=== PATIENT | male | born 1940 | race Caucasian/White ===

== ENCOUNTER 2018-05-26 12:31 | Inpatient (IN) | payer OTHER ==
--- NOTE | 2018-05-26 12:49 | PDOC ---
History of Present Illness - General Stated Complaint: FEVER Time Seen by Provider: 05/26/18 12:40 - History of Present Illness Initial Comments: 05/26/18 12:44 78 yo M with h/o NIDDM, HTN, HLD, OCD, BPH, BIBA from [facility] ([facility]) confusion and fever. Per EMS patient found to be diaphoretic, with oral temp 101.0. Per group home staff, and EMS patient non-verbal, not following commands, and hypotensive. EMS told by PMD that pt. was in septic shock. EMS reports SBP 120. Mental status not typical of baseline. Patient typically A&O, and non ambulatory at baseline. Currently denies symptoms. Patient denies DAVIS, vision change, palpitations, cough, wheezing, orthopena, PND , leg swelling/pain, N/V, F,C, CP, SOB, urinary complaints, hematuria, BPR, abdominal pain, diarrhea, constipation, lightheadedness, weakness, sensory changes. PMHx: as noted above ROS: as noted Allergies: NKDA PMD: Dr. Hurley [facility] Past History - Past Medical History Allergies/Adverse Reactions: Allergies Allergy/AdvReac Type Severity Reaction Status Date / Time No Known Allergies Allergy Verified 05/26/18 13:03 Home Medications: Ambulatory Orders Acetaminophen [Tylenol] 650 mg PO ONCE 05/26/18 Duloxetine HCl [Cymbalta -] 60 mg PO DAILY 05/26/18 Dutasteride [Avodart] 0.5 mg PO DAILY 05/26/18 Fluvoxamine Maleate [Luvox -] 100 mg PO BID 05/26/18 Furosemide [Lasix -] 40 mg PO DAILY 05/26/18 Glucosamine Sulfate Dipot Chlr [Glucosamine] 500 mg PO BID 05/26/18 Insulin (LOG) Aspart [NovoLOG -] 0 units SQ TID 05/26/18 Insulin (Levemir) [Levemir Vial] 80 unit SQ DAILY 05/26/18 Meloxicam [Mobic] 15 mg PO HS 05/26/18 Metformin HCl [Glucophage] 1,000 mg PO BID 05/26/18 Oxcarbazepine [Trileptal -] 300 mg PO BID 05/26/18 Oxcarbazepine [Trileptal] 150 mg PO HS 05/26/18 Rosuvastatin [Crestor -] 10 mg PO DAILY 05/26/18 Sitagliptin Phosphate [Januvia -] 100 mg PO DAILY@0700 05/26/18 Spironolactone [Aldactone] 25 mg PO BID 05/26/18 Tamsulosin HCl [Flomax] 0.4 mg PO DAILY 05/26/18 Thiamine HCl [Vitamin B1] 100 mg PO DAILY 05/26/18 Review of Systems - Review of Systems Comments:: 05/26/18 12:58 GENERAL/CONSTITUTIONAL: No fever or chills. No weakness. HEAD, EYES, EARS, NOSE AND THROAT: No change in vision. No ear pain or discharge. No sore throat. CARDIOVASCULAR: No chest pain or shortness of breath RESPIRATORY: No cough, wheezing, or hemoptysis. GASTROINTESTINAL: No nausea, vomiting, diarrhea or constipation. GENITOURINARY: No dysuria, frequency, or change in urination. MUSCULOSKELETAL: No joint or muscle swelling or pain. No neck or back pain. SKIN: No rash NEUROLOGIC: No headache, vertigo, loss of consciousness, or change in strength/ sensation. ENDOCRINE: No increased thirst. No abnormal weight change HEMATOLOGIC/LYMPHATIC: No anemia, easy bleeding, or history of blood clots. ALLERGIC/IMMUNOLOGIC: No hives or skin allergy. *Physical Exam - Physical Exam Comments: 05/26/18 12:58 GENERAL: Awake, alert, and oriented to person, date, in no acute distress HEAD: No signs of trauma, normocephalic, atraumatic EYES: PERRLA, EOMI, sclera anicteric, conjunctiva clear ENT: Auricles normal inspection, hearing grossly normal, nares patent, oropharynx clear without exudates. Moist mucosa NECK: Normal ROM, supple, no lymphadenopathy, JVD, or masses LUNGS: No distress, speaks full sentences, clear to auscultation bilaterally HEART: Regular rate and rhythm, normal S1 and S2, no murmurs, rubs or gallops, peripheral pulses normal and equal bilaterally. ABDOMEN: Soft, nontender, normoactive bowel sounds. No guarding, no rebound. No masses EXTREMITIES : Normal inspection, Normal range of motion, no edema. No clubbing or cyanosis. NEUROLOGICAL: Cranial nerves II through XII grossly intact. Normal speech, no focal sensorimotor deficits SKIN: Warm, Dry, normal turgor, no rashes or lesions noted Heart Score/ECG Review - History History: Slightly suspicious - Electrocardiogram EKG: Non specific repolarization disturbance - Age Age: >/= 65 - Risk Factors Risk Factors Heart Score: Yes Hx Hypertension, Yes Hx Diabetes, Yes Positive family hx of cardiac disease, Yes Hx Obesity Based on the list above the patient has:: >/=3 risk factors or Hx atherosclerotic disease - Troponin Troponin: 1-3x normal limit - Score Heart Score - Total: 6 ED Treatment Course - LABORATORY CBC & Chemistry Diagram: 05/26/18 12:15 05/26/18 12:15 - RADIOLOGY Radiology Studies Ordered: Category Date Time Status CHEST X-RAY PORTABLE* [RAD] Stat Radiology 05/26/18 12:41 Ordered Medical Decision Making - Medical Decision Making 05/26/18 12:54 78 yo M with h/o NIDDM, HTN, HLD, OCD, BPH, BIBA from [facility] ([facility]) confusion, hypotnesion, and fever 101.0. Temp 101.6, HR 113, RR 22, BP 119/73, O2 93 % 3 L NC, A&Ox2. Physical exam unremarkable. 3/4 SIRS criteria. Sepsis protocol initiated. ACS.VA r/o. Will assess for VBI/TIA, cardiac dysarrythmias, hypoglycemia, electrolyte abnml, metabolic and toxic derangements, acid-base disturbances, infection. 05/26/18 12:56 ED Course: Vanc/Zosyn Flu: Neg 05/26/18 13:39 WBC: 18.0 LA: 2.2 05/26/18 13:40 BUN/Cr: 37/1.7 05/26/18 13:42 Trop: 0.08 EKG: Sinus tachycardia, RBBB, LVH. Absent DANGELO, STD. Nml interval durations. Heart score ~6 CXR: Cardiomegaly on preliminary read UA: 3+, LE, 3+, 195 WBC, 11 RBC, Nitrite + Plan to admit medicine 05/26/18 14:[address] Anthony Arzola answering service. Awaiting call back. 05/26/18 15:[address] Torre. Admitted. *DC/Admit/Observation/Transfer Diagnosis at time of Disposition: GUILLE (acute kidney injury) Sepsis Qualifiers: Sepsis type: sepsis due to unspecified organism Qualified Code(s): A41.9 - Sepsis, unspecified organism UTI (urinary tract infection) Qualifiers: Urinary tract infection type: site unspecified Hematuria presence: without hematuria Qualified Code(s): N39.0 - Urinary tract infection, site not specified - Discharge Dispostion Condition at time of disposition: Stable Decision to Admit order: Yes - Referrals Referrals: Aida Hurley MD [Primary Care Provider] - - Patient Instructions - Post Discharge Activity
[2018-05-26 12:57] LABS: BASO % 0.3 % (0-2.0); EOS % 0.1 % (0-4.5); HEMATOCRIT 37.8 % (35.4-49); HEMOGLOBIN 13.1 GM/dL (11.7-16.9); LYMPH % 4.3 % (8-40); MCH 30.5 pg (25.7-33.7); MCHC 34.8 g/dl (32.0-35.9); MEAN CELL VOLUME 87.7 fl (80-96); MEAN PLT VOLUME 7.8 fl (7.5-11.1); MONO % 7.9 % (3.8-10.2); NEUT % 87.4 % (42.8-82.8); PLATELET COUNT 223 K/MM3 (134-434); RBC 4.31 M/mm3 (4.00-5.60); RDW 13.1 % (11.9-15.9)
[2018-05-26 12:58] LABS: VENOUS PC02 41.3 mmHg (38-52); VENOUS PH 7.4 (7.32-7.42); VENOUS PO2 68.9 mmHg (28-48)
[2018-05-26] MEDS ORDERED: SODIUM CHLORIDE IV ONE (13:09)
[2018-05-26 13:10] LABS: INR 1.07 (0.83-1.09); PROTHROMBIN TIME (PATIENT) 12.6 SEC (9.7-13.0)
[2018-05-26 13:13] LABS: ACTIVATED PTT 27.6 SECONDS (25.2-36.5)
[2018-05-26] MEDS ORDERED: SODIUM CHLORIDE 0.9% 500 ML INFUS.BAG IV ONE (13:15)
[2018-05-26] MEDS ORDERED: PIPERACILLIN/TAZOB 4.5 GM 4.5 GM in DEXTROSE 5%-WATER 100 ML IVPB ONE (13:16)
[2018-05-26 13:21] LABS: ALBUMIN 3.8 g/dl (3.4-5.0); ALK PHOS 132 U/L (45-117); ANION GAP 10 MMOL/L (8-16); BILIRUBIN,TOTAL 0.3 mg/dL (0.2-1); BLOOD UREA NITROGEN 37 mg/dL (7-18); CALCIUM 9.2 mg/dL (8.5-10.1); CHLORIDE 105 mmol/L (98-107); CO2 25 mmol/L (21-32); CREATININE 1.7 mg/dL (0.55-1.3); GLUCOSE,RANDOM 202 mg/dL (74-106); POTASSIUM 4.4 mmol/L (3.5-5.1); SGOT/AST 11 U/L (15-37); SGPT/ALT 17 U/L (13-61); SODIUM 139 mmol/L (136-145); TOT PROT 7.6 g/dl (6.4-8.2)
[2018-05-26] MEDS ORDERED: PIPERACILLIN/TAZOB 4.5 GM 4.5 GM/100 ML BAG IVPB ONE (13:34)
[2018-05-26 13:49] LABS: URINE APPEARANCE CLOUDY; URINE BILIRUBIN NEGATIVE (<2.0 mg/dL); URINE COLOR YELLOW; URINE GLUCOSE (UA) NEGATIVE (NEGATIVE); URINE KETONE NEGATIVE (NEGATIVE); URINE LEUK ESTERASE 3+ (NEGATIVE); URINE NITRITE POSITIVE (NEGATIVE); URINE PROTEIN 1+ (NEGATIVE); URINE UROBILINOGEN NEGATIVE mg/dL (0.2-1.0)
[2018-05-26 13:55] LABS: EPI CELLS RARE /HPF (FEW); URINE BACTERIA RARE /hpf (NONE SEEN); URINE HYALINE CAST 2 /lpf
[2018-05-26] MEDS ORDERED: VANCOMYCIN 1 GM in D5W (PRE-DOCKED) 1,000 MG/250 ML IVPB ONE (13:56)
[2018-05-26 13:58] LABS: ANISOCYTOSIS 0; MACROCYTOSIS 0; PLATELET ESTIMATE NORMAL
--- NOTE | 2018-05-26 14:10 | PDOC ---
Attending Attestation - Resident Resident Name: Wallace Stubbs - ED Attending Attestation I have performed the following: I have examined & evaluated the patient, The case was reviewed & discussed with the resident, I agree w/resident's findings & plan, Exceptions are as noted - HPI HPI: 05/26/18 14:11 The patient is a 78 year old male with a PMH of NIDDM, HTN, HLD, OCD, and BPH sent in from [facility] for altered mental status. As per ND, patient was febrile and has a fever of 101.2 in the ER. [facility] staff states that the pt was awake today but not as responsive as normal. In ED, he is answering questions appropriately in the ER, but is unable to provide further history. The patient denies chest pain, shortness of breath, headache and dizziness. Denies fever, chills, nausea, vomit, diarrhea and constipation. Denies dysuria, frequency, urgency and hematuria. Allergies: NKA Past surgical history: None reported. Social history: No reported alcohol, drug or cigarette used. PCP: Dr. Hurley [facility] - Physicial Exam PE: 05/26/18 14:11 "GENERAL: Awake, alert, in no acute distress. HEAD: No signs of trauma EYES: PERRLA, EOMI, sclera anicteric, conjunctiva clear ENT: Auricles normal inspection, hearing grossly normal, nares patent, oropharynx clear without exudates. Moist mucosa NECK: Nontender, no stepoffs, Normal ROM, supple, no lymphadenopathy, JVD, or masses LUNGS: Breath sounds equal, clear to auscultation bilaterally. No wheezes, and no crackles HEART: Regular rate and rhythm, normal S1 and S2, no murmurs, rubs or gallops ABDOMEN: Soft, nontender, normoactive bowel sounds. No guarding, no rebound. No masses EXTREMITIES: Normal range of motion, no edema. No clubbing or cyanosis. No cords, erythema, or tenderness NEUROLOGICAL: Cranial nerves II through XII intact. 5/5 strength and sensation in all extremities, Normal speech, normal gait, normal cerebellar function SKIN: Warm, Dry, normal turgor, no rashes or lesions noted. - Medical Decision Making 05/26/18 14:12 78 M with fever and AMS. Pt is awake and alert in ED, febrile to 101. No focal infectious symptoms but suspect UTI. Pt with no focal neuro deficits to suggest CVA. Suspect AMS likely 2/2 infection. - Labs, cultures - CXR, UA - IVF, tylenol - CT head
[2018-05-26] MEDS ORDERED: VANCOMYCIN 1 GRAM (PRE-DOCKED) 1,000 MG/250 ML BAG IVPB ONE (14:22)
[2018-05-26] MEDS ORDERED: ACETAMINOPHEN 325 MG TABLET (FP) PO PRN (15:07)
[2018-05-26] MEDS ORDERED: SODIUM CHLORIDE 0.45% 1,000 ML IV SCH (15:15)
[2018-05-26] MEDS: SODIUM CHLORIDE 0.45% 1,000 ML IV SCH ×2 (15:36→18:52)
--- NOTE | 2018-05-26 16:02 | CON.ID ---
Consult Consult Specialty:: infectious diseases Referred by:: Chandrakant Reason for Consultation:: ams,sepsis,uti - Smoking History Smoking history: Never smoked Home Medications - Allergies Allergies/Adverse Reactions: Allergies Allergy/AdvReac Type Severity Reaction Status Date / Time No Known Allergies Allergy Verified 05/26/18 13:03 - Home Medications Home Medications: Ambulatory Orders Acetaminophen [Tylenol] 650 mg PO ONCE 05/26/18 Duloxetine HCl [Cymbalta -] 60 mg PO DAILY 05/26/18 Dutasteride [Avodart] 0.5 mg PO DAILY 05/26/18 Fluvoxamine Maleate [Luvox -] 100 mg PO BID 05/26/18 Furosemide [Lasix -] 40 mg PO DAILY 05/26/18 Glucosamine Sulfate Dipot Chlr [Glucosamine] 500 mg PO BID 05/26/18 Insulin (LOG) Aspart [NovoLOG -] 0 units SQ TID 05/26/18 Insulin (Levemir) [Levemir Vial] 80 unit SQ DAILY 05/26/18 Meloxicam [Mobic] 15 mg PO HS 05/26/18 Metformin HCl [Glucophage] 1,000 mg PO BID 05/26/18 Oxcarbazepine [Trileptal -] 300 mg PO BID 05/26/18 Oxcarbazepine [Trileptal] 150 mg PO HS 05/26/18 Rosuvastatin [Crestor -] 10 mg PO DAILY 05/26/18 Sitagliptin Phosphate [Januvia -] 100 mg PO DAILY@0700 05/26/18 Spironolactone [Aldactone] 25 mg PO BID 05/26/18 Tamsulosin HCl [Flomax] 0.4 mg PO DAILY 05/26/18 Thiamine HCl [Vitamin B1] 100 mg PO DAILY 05/26/18 Physical Exam Vital Signs: Vital Signs Temperature 98.2 F 05/26/18 14:43 Pulse Rate 99 H 05/26/18 14:43 Respiratory Rate 18 05/26/18 14:43 Blood Pressure 117/56 L 05/26/18 14:43 O2 Sat by Pulse Oximetry (%) 99 05/26/18 15:11 Labs: CBC, BMP 05/26/18 12:15 05/26/18 12:15
[2018-05-26] MEDS ORDERED: INSULIN (NOVOLOG) ASPART 100 UNITS/ML 10ML VIAL ONE (18:43)
[2018-05-26] MEDS ORDERED: DEXTROSE 5%-WATER - 50 ML IVPB ONE (18:43)
[2018-05-26] MEDS ORDERED: PIPERACILLIN/TAZOBACTAM 2.25 GM VIAL IVPB ONE (18:43)
[2018-05-26] MEDS: PIPERACILLIN/TAZOB 2.25 GM 2.25 GM in DEXTROSE 5%-WATER - 50 ML IVPB SCH (18:49)
[2018-05-26] MEDS: INSULIN SLIDING SCALE (NOVOLOG) 1 VIAL SQ SCH (18:50)
--- NOTE | 2018-05-26 19:39 | HP ---
Admitting History and Physical - Primary Care Physician PCP: Aida Hurley - Admission Chief Complaint: AMS History of Present Illness: ER HISTORY - History of Present Illness Initial Comments: 05/26/18 12:44 78 yo M with h/o NIDDM, HTN, HLD, OCD, BPH, BIBA from [facility] ([facility]) confusion and fever. Per EMS patient found to be diaphoretic, with oral temp 101.0. Per prison staff, and EMS patient non-verbal, not following commands, and hypotensive. EMS told by PMD that pt. was in septic shock. EMS reports SBP 120. Mental status not typical of baseline. Patient typically A&O, and non ambulatory at baseline. Currently denies symptoms. Patient denies DAVIS, vision change, palpitations, cough, wheezing, orthopena, PND , leg swelling/pain, N/V, F,C, CP, SOB, urinary complaints, hematuria, BPR, abdominal pain, diarrhea, constipation, lightheadedness, weakness, sensory changes. PMHx: as noted above ROS: as noted Allergies: NKDA PMD: Irina Hernández Pt examined by me in the ER Drowsy, not able to give good history Not in distress Found to have UTI, sepsis- received Vanco and Zosyn in the ER Received iv fluids as well, not SOB , no distress Tmax here was 101.6F cultures collected CT head negative History Source: Medical Record, Transfer Record Limitations to Obtaining History: Poor Historian - Past Medical History Cardiovascular: Yes: HTN, Hyperlipdemia Renal/: Yes: BPH Endocrine: Yes: Diabetes Mellitus - Smoking History Smoking history: Never smoked Have you smoked in the past 12 months: No - Alcohol/Substance Use Hx Alcohol Use: No Home Medications - Allergies Allergies/Adverse Reactions: Allergies Allergy/AdvReac Type Severity Reaction Status Date / Time No Known Allergies Allergy Verified 05/26/18 13:03 - Home Medications Home Medications: Ambulatory Orders Acetaminophen [Tylenol] 650 mg PO ONCE 05/26/18 Duloxetine HCl [Cymbalta -] 60 mg PO DAILY 05/26/18 Dutasteride [Avodart] 0.5 mg PO DAILY 05/26/18 Fluvoxamine Maleate [Luvox -] 100 mg PO BID 05/26/18 Furosemide [Lasix -] 40 mg PO DAILY 05/26/18 Glucosamine Sulfate Dipot Chlr [Glucosamine] 500 mg PO BID 05/26/18 Insulin (LOG) Aspart [NovoLOG -] 0 units SQ TID 05/26/18 Insulin (Levemir) [Levemir Vial] 80 unit SQ DAILY 05/26/18 Meloxicam [Mobic] 15 mg PO HS 05/26/18 Metformin HCl [Glucophage] 1,000 mg PO BID 05/26/18 Oxcarbazepine [Trileptal -] 300 mg PO BID 05/26/18 Oxcarbazepine [Trileptal] 150 mg PO HS 05/26/18 Rosuvastatin [Crestor -] 10 mg PO DAILY 05/26/18 Sitagliptin Phosphate [Januvia -] 100 mg PO DAILY@0700 05/26/18 Spironolactone [Aldactone] 25 mg PO BID 05/26/18 Tamsulosin HCl [Flomax] 0.4 mg PO DAILY 05/26/18 Thiamine HCl [Vitamin B1] 100 mg PO DAILY 05/26/18 Review of Systems - Review of Systems Constitutional: denies: Chills, Fever, Weakness Respiratory: denies: Cough, SOB Gastrointestinal: denies: Abdominal Pain Physical Examination Vital Signs: Vital Signs Temperature 98.2 F 05/26/18 18:11 Pulse Rate 84 05/26/18 18:11 Respiratory Rate 20 05/26/18 18:11 Blood Pressure 156/96 05/26/18 18:11 O2 Sat by Pulse Oximetry (%) 99 05/26/18 15:11 Constitutional: Yes: No Distress, Calm Cardiovascular: Yes: Regular Rate and Rhythm Respiratory: Yes: Diminished Gastrointestinal: Yes: Normal Bowel Sounds, Soft. No: Distention, Tenderness ...Rectal Exam: No: Other Renal/: No: CVA Tenderness - Left, CVA Tenderness - Right Extremities: Yes: Other (chronic venous changes in legs B/l) Edema: No Labs: CBC, BMP 05/26/18 12:15 05/26/18 12:15 Imaging - Results Chest X-ray: Image Reviewed Cat Scan: Report Reviewed EKG: Image Reviewed Problem List - Problems (1) Toxic metabolic encephalopathy Assessment/Plan: Due to sepsis Lactic acid initially was elevated on iv fluids iv antibiotics Code(s): G92 - TOXIC ENCEPHALOPATHY (2) GUILLE (acute kidney injury) Assessment/Plan: unknown baseline will ask PMD about recent labs for now check sono renal and bladder IV fluids monitor renal function Code(s): N17.9 - ACUTE KIDNEY FAILURE, UNSPECIFIED (3) Sepsis Assessment/Plan: due to UTI CXR -- no infiltrate Negative Influenza screen iv antibiotics ID eval troponins flat trend-- due to sepsis and not ACS Code(s): A41.9 - SEPSIS, UNSPECIFIED ORGANISM Qualifiers: Sepsis type: sepsis due to unspecified organism Qualified Code(s): A41.9 - Sepsis, unspecified organism (4) UTI (urinary tract infection) Assessment/Plan: Has h/O BPH continue with meds check sono renal and bladder iv antibiotics culture pending Code(s): N39.0 - URINARY TRACT INFECTION, SITE NOT SPECIFIED Qualifiers: Urinary tract infection type: site unspecified Hematuria presence: without hematuria Qualified Code(s): N39.0 - Urinary tract infection, site not specified (5) Obsessive compulsive disorder Assessment/Plan: on meds check levels DVT prophylaxis-- Heparin sc Code(s): F42.9 - OBSESSIVE-COMPULSIVE DISORDER, UNSPECIFIED
[2018-05-26] MEDS ORDERED: PT OWN MED DRAWER 7, Y5N ONE (21:12)
[2018-05-26] MEDS: OXcarbazepine 300 MG TABLET (UD) PO SCH (21:43)
[2018-05-26] MEDS: OXcarbazepine 150 MG TABLET (UD) PO SCH (21:44)
[2018-05-27] MEDS ORDERED: DEXTROSE 5%-WATER - 50 ML IVPB ONE ×3 (01:29→17:19)
[2018-05-27] MEDS ORDERED: PIPERACILLIN/TAZOBACTAM 2.25 GM VIAL IVPB ONE ×3 (01:29→17:19)
[2018-05-27] MEDS: PIPERACILLIN/TAZOB 2.25 GM 2.25 GM in DEXTROSE 5%-WATER - 50 ML IVPB SCH ×3 (01:33→17:35)
[2018-05-27] MEDS: INSULIN (LEVEMIR) 100 UNITS/ML UNITS SQ SCH (06:31)
[2018-05-27] MEDS: sitaGLIPtin PHOSPHATE 100 MG TABLET (FP) PO SCH (06:31)
[2018-05-27] MEDS: INSULIN SLIDING SCALE (NOVOLOG) 1 VIAL SQ SCH ×3 (06:32→16:20)
[2018-05-27 06:47] LABS: BASO % 0.3 % (0-2.0); EOS % 0.2 % (0-4.5); HEMATOCRIT 33.3 % (35.4-49); HEMOGLOBIN 11.3 GM/dL (11.7-16.9); LYMPH % 13.3 % (8-40); MCH 29.9 pg (25.7-33.7); MCHC 33.9 g/dl (32.0-35.9); MEAN CELL VOLUME 88.4 fl (80-96); MEAN PLT VOLUME 7.8 fl (7.5-11.1); MONO % 6.9 % (3.8-10.2); NEUT % 79.3 % (42.8-82.8); PLATELET COUNT 187 K/MM3 (134-434); RBC 3.76 M/mm3 (4.00-5.60); RDW 13.2 % (11.9-15.9); WHITE BLOOD COUNT 16.4 K/mm3 (4.0-10.0)
[2018-05-27 07:24] LABS: ALBUMIN 3.1 g/dl (3.4-5.0); ALK PHOS 107 U/L (45-117); ANION GAP 10 MMOL/L (8-16); BILIRUBIN,TOTAL 0.4 mg/dL (0.2-1); BLOOD UREA NITROGEN 39 mg/dL (7-18); CALCIUM 8.7 mg/dL (8.5-10.1); CHLORIDE 102 mmol/L (98-107); CO2 25 mmol/L (21-32); CREATININE 1.7 mg/dL (0.55-1.3); GLUCOSE,RANDOM 213 mg/dL (74-106); POTASSIUM 4.1 mmol/L (3.5-5.1); SGOT/AST 10 U/L (15-37); SGPT/ALT 14 U/L (13-61); SODIUM 137 mmol/L (136-145); TOT PROT 6.5 g/dl (6.4-8.2)
[2018-05-27] MEDS ORDERED: PT OWN MED DRAWER 7, Y5N ONE (09:29)
[2018-05-27] MEDS: THIAMINE HCL 100 MG TABLET (FP) PO SCH (09:30)
[2018-05-27] MEDS: DULoxetine HCL 30 MG CAPSULE.DR (FP) PO SCH (09:31)
[2018-05-27] MEDS: TAMSULOSIN HCL 0.4 MG CAP PO SCH (09:31)
[2018-05-27] MEDS: DUTASTERIDE 0.5 MG CAP (FP) PO SCH (09:31)
[2018-05-27] MEDS: OXcarbazepine 300 MG TABLET (UD) PO SCH ×2 (09:32→23:17)
[2018-05-27] MEDS ORDERED: CEFTRIAXONE 1 GM in DEXTROSE 5%-WATER - 50 ML IVPB SCH (10:00)
--- NOTE | 2018-05-27 10:40 | EKG ---
Test Reason : Blood Pressure : / mmHG Vent. Rate : 112 BPM Atrial Rate : 112 BPM P-R Int : 174 ms QRS Dur : 150 ms QT Int : 354 ms P-R-T Axes : 042 -55 029 degrees QTc Int : 483 ms SINUS TACHYCARDIA RIGHT BUNDLE BRANCH BLOCK LEFT ANTERIOR FASCICULAR BLOCK BIFASCICULAR BLOCK MINIMAL VOLTAGE CRITERIA FOR LVH, MAY BE NORMAL VARIANT ABNORMAL ECG NO PREVIOUS ECGS AVAILABLE Confirmed by JEFFREY SWAIN, TABBY ([id number]) on 05/27/2018 10:40:37 AM Referred By: Confirmed By:TABBY MURPHY MD
--- NOTE | 2018-05-27 11:17 | PN ---
Progress Note, Physician History of Present Illness: patient looks much better mental status has improved a lot answering all questions properly says he feels much better urine infected - Current Medication List Current Medications: Active Medications Acetaminophen (Tylenol -) 650 mg PO Q8H PRN PRN Reason: FEVER Duloxetine HCl (Cymbalta -) 60 mg PO DAILY [facility] Last Admin: 05/27/18 09:31 Dose: 60 mg Dutasteride (Avodart -) 0.5 mg PO DAILY [facility] Last Admin: 05/27/18 09:31 Dose: 0.5 mg Fluvoxamine Maleate (Luvox -) 100 mg PO BID [facility] Last Admin: 05/27/18 09:31 Dose: 100 mg Sodium Chloride (1/2 Normal Saline) 1,000 mls @ 50 mls/hr IV ASDIR [facility] Last Admin: 05/26/18 18:52 Dose: 50 mls/hr Piperacillin Sod/Tazobactam (Sod 2.25 gm/ Dextrose) 50 mls @ 100 mls/hr IVPB Q8H-IV [facility]; Protocol Last Admin: 05/27/18 09:51 Dose: 100 mls/hr Insulin Aspart (Novolog Vial Sliding Scale -) 1 vial SQ TIDAC [facility]; Protocol Last Admin: 05/27/18 06:32 Dose: 4 units Insulin Detemir (Levemir Vial) 80 units SQ DAILY@0700 [facility] Last Admin: 05/27/18 06:31 Dose: 80 units Oxcarbazepine (Trileptal -) 150 mg PO HS [facility] Last Admin: 05/26/18 21:44 Dose: 150 mg Oxcarbazepine (Trileptal -) 300 mg PO BID [facility] Last Admin: 05/27/18 09:32 Dose: 300 mg Rosuvastatin Calcium (Crestor -) 10 mg PO [facility] Sitagliptin Phosphate (Januvia -) 100 mg PO DAILY@0700 [facility] Last Admin: 05/27/18 06:31 Dose: 100 mg Tamsulosin HCl (Flomax -) 0.4 mg PO DAILY [facility] Last Admin: 05/27/18 09:31 Dose: 0.4 mg Thiamine HCl (Vitamin B1 -) 100 mg PO DAILY [facility] Last Admin: 05/27/18 09:30 Dose: 100 mg - Objective Vital Signs: Vital Signs Temperature 98.2 F 05/27/18 08:47 Pulse Rate 84 05/27/18 08:47 Respiratory Rate 20 05/27/18 08:47 Blood Pressure 136/63 05/27/18 08:47 O2 Sat by Pulse Oximetry (%) 97 05/27/18 09:00 Constitutional: Yes: No Distress, Calm, Obese Cardiovascular: Yes: S1, S2 Respiratory: Yes: Regular, CTA Bilaterally Gastrointestinal: Yes: Normal Bowel Sounds, Soft Musculoskeletal: Yes: WNL Extremities: Yes: WNL Neurological: Yes: Alert, Oriented Psychiatric: Yes: Alert, Oriented Labs: CBC, BMP 05/27/18 06:15 05/27/18 06:15 INR, PTT INR 1.07 (0.83-1.09) 05/26/18 12:35 Assessment/Plan patient who came in with ams probably due to uti now urine showing positive uti ams obesity plan will continue abx await for identification of the bacteria' rest as per the team
--- NOTE | 2018-05-27 11:50 | PN ---
Progress Note (short form) - Note Progress Note: pt seen/ examined chart reviewed awake / comfortable today febrile i/d f/u noted / appreciated and discussed . Vital Signs Temp 98.2 F 05/27/18 08:47 Pulse 84 05/27/18 08:47 Resp 20 05/27/18 08:47 BP 136/63 05/27/18 08:47 Pulse Ox 97 05/27/18 09:00 Intake & Output 05/26/18 05/26/18 05/27/18 11:59 23:59 11:59 Intake Total 120 975 Output Total 1 2 Balance 119 973 Weight 272 lb Intake: IV 600 1/2 Normal Saline 1,000 600 ml @ 50 mls/hr IV ASDIR [facility] Rx#:[id number] IVPB 100 Oral 275 Oral Supplement 120 Output: Urine 1 2 Void 1 2 Other: Voiding Method Diaper Diaper Bowel Movement Yes No Height 5 ft 9 in Body Mass Index (BMI) 0.8 Weight [facility] Measurement Method Estimated by Staff Active Medications Acetaminophen (Tylenol -) 650 mg PO Q8H PRN PRN Reason: FEVER Duloxetine HCl (Cymbalta -) 60 mg PO DAILY [facility] Last Admin: 05/27/18 09:31 Dose: 60 mg Dutasteride (Avodart -) 0.5 mg PO DAILY [facility] Last Admin: 05/27/18 09:31 Dose: 0.5 mg Enoxaparin Sodium (Lovenox -) 30 mg SQ DAILY [facility] Fluvoxamine Maleate (Luvox -) 100 mg PO BID [facility] Last Admin: 05/27/18 09:31 Dose: 100 mg Sodium Chloride (1/2 Normal Saline) 1,000 mls @ 50 mls/hr IV ASDIR [facility] Last Admin: 05/26/18 18:52 Dose: 50 mls/hr Piperacillin Sod/Tazobactam (Sod 2.25 gm/ Dextrose) 50 mls @ 100 mls/hr IVPB Q8H-IV [facility]; Protocol Last Admin: 05/27/18 09:51 Dose: 100 mls/hr Insulin Aspart (Novolog Vial Sliding Scale -) 1 vial SQ TIDAC [facility]; Protocol Last Admin: 05/27/18 06:32 Dose: 4 units Insulin Detemir (Levemir Vial) 80 units SQ DAILY@0700 [facility] Last Admin: 05/27/18 06:31 Dose: 80 units Oxcarbazepine (Trileptal -) 150 mg PO HS [facility] Last Admin: 05/26/18 21:44 Dose: 150 mg Oxcarbazepine (Trileptal -) 300 mg PO BID [facility] Last Admin: 05/27/18 09:32 Dose: 300 mg Rosuvastatin Calcium (Crestor -) 10 mg PO HS [facility] Sitagliptin Phosphate (Januvia -) 100 mg PO DAILY@0700 [facility] Last Admin: 05/27/18 06:31 Dose: 100 mg Tamsulosin HCl (Flomax -) 0.4 mg PO DAILY [facility] Last Admin: 05/27/18 09:31 Dose: 0.4 mg Thiamine HCl (Vitamin B1 -) 100 mg PO DAILY [facility] Last Admin: 05/27/18 09:30 Dose: 100 mg CBC, BMP 05/27/18 06:15 05/27/18 06:15 Microbiology 05/26/18 13:30 Urine Culture - Preliminary Urine - Urine Clean Catch Lactose Fermenting Neg Bacilli Physical Exam Awake/ comfortable heent-- wnl lungs- clear cvs- s1, s2 rrr abd- soft/ obese ext- no edema a/p toxic metabolic encephalopathy uti better continue abx f/u labs Dvt Prophylaxis oob - chair Physical therapy will follow discussed with nursing staff also
[2018-05-27] MEDS: ENOXAPARIN NA (PORCINE) 30 MG/0.3 ML DISP.SYRIN SQ SCH (13:23)
[2018-05-27] MEDS: SODIUM CHLORIDE 0.45% 1,000 ML IV SCH ×2 (16:12→19:15)
[2018-05-27] MEDS: OXcarbazepine 150 MG TABLET (UD) PO SCH (23:17)
[2018-05-27] MEDS: ROSUVASTATIN CA 10 MG TABLET (FP) PO SCH (23:18)
[2018-05-28] MEDS ORDERED: DEXTROSE 5%-WATER - 50 ML IVPB ONE ×3 (00:54→16:25)
[2018-05-28] MEDS ORDERED: PIPERACILLIN/TAZOBACTAM 2.25 GM VIAL IVPB ONE ×2 (00:54→09:46)
[2018-05-28] MEDS: PIPERACILLIN/TAZOB 2.25 GM 2.25 GM in DEXTROSE 5%-WATER - 50 ML IVPB SCH ×2 (00:59→10:25)
[2018-05-28] MEDS: sitaGLIPtin PHOSPHATE 100 MG TABLET (FP) PO SCH (06:47)
[2018-05-28] MEDS: INSULIN (LEVEMIR) 100 UNITS/ML UNITS SQ SCH (06:47)
[2018-05-28] MEDS: INSULIN SLIDING SCALE (NOVOLOG) 1 VIAL SQ SCH ×3 (06:49→17:16)
[2018-05-28 08:03] LABS: BASO % 0.3 % (0-2.0); EOS % 0.5 % (0-4.5); HEMATOCRIT 31.7 % (35.4-49); LYMPH % 11.3 % (8-40); MCH 30.2 pg (25.7-33.7); MCHC 34.6 g/dl (32.0-35.9); MEAN CELL VOLUME 87.2 fl (80-96); MEAN PLT VOLUME 7.6 fl (7.5-11.1); MONO % 6.9 % (3.8-10.2); PLATELET COUNT 176 K/MM3 (134-434); RBC 3.64 M/mm3 (4.00-5.60); RDW 12.9 % (11.9-15.9); WHITE BLOOD COUNT 10.1 K/mm3 (4.0-10.0)
[2018-05-28 08:51] LABS: ALK PHOS 100 U/L (45-117); ANION GAP 9 MMOL/L (8-16); BILIRUBIN,TOTAL 0.4 mg/dL (0.2-1); BLOOD UREA NITROGEN 26 mg/dL (7-18); CALCIUM 8.8 mg/dL (8.5-10.1); CHLORIDE 102 mmol/L (98-107); CO2 27 mmol/L (21-32); CREATININE 1.2 mg/dL (0.55-1.3); GLUCOSE,RANDOM 119 mg/dL (74-106); POTASSIUM 3.9 mmol/L (3.5-5.1); SGOT/AST 8 U/L (15-37); SGPT/ALT 13 U/L (13-61); SODIUM 138 mmol/L (136-145); TOT PROT 6.5 g/dl (6.4-8.2)
[2018-05-28] MEDS ORDERED: PT OWN MED DRAWER 7, Y5N ONE ×2 (09:46→22:05)
[2018-05-28] MEDS: TAMSULOSIN HCL 0.4 MG CAP PO SCH (10:25)
[2018-05-28] MEDS: OXcarbazepine 300 MG TABLET (UD) PO SCH ×2 (10:26→22:11)
[2018-05-28] MEDS: DUTASTERIDE 0.5 MG CAP (FP) PO SCH (10:26)
[2018-05-28] MEDS: THIAMINE HCL 100 MG TABLET (FP) PO SCH (10:26)
[2018-05-28] MEDS: ENOXAPARIN NA (PORCINE) 30 MG/0.3 ML DISP.SYRIN SQ SCH (10:27)
[2018-05-28] MEDS: DULoxetine HCL 30 MG CAPSULE.DR (FP) PO SCH (10:27)
--- NOTE | 2018-05-28 11:17 | PN ---
Progress Note (short form) - Note Progress Note: Awake and more alert he vomited today and yesterday does not remember that he vomited yesterday No abd pain poor affect Vital Signs - 24 hr 05/27/18 05/27/18 05/28/18 12:57 20:12 05:35 Temperature 99.8 F H 98.2 F Pulse Rate 86 90 Respiratory 20 20 20 Rate Blood Pressure 129/64 151/70 O2 Sat by Pulse 98 Oximetry (%) Current Medications Generic Name Dose Route Start Last Admin Trade Name Freq PRN Reason Stop Dose Admin Acetaminophen 650 mg 05/26/18 15:07 Tylenol - PO Q8H PRN FEVER Duloxetine HCl 60 mg 05/27/18 10:00 05/28/18 10:27 Cymbalta - PO 60 mg DAILY TONI Administration Dutasteride 0.5 mg 05/27/18 10:00 05/28/18 10:26 Avodart - PO 0.5 mg DAILY TONI Administration Enoxaparin Sodium 30 mg 05/27/18 13:30 05/28/18 10:27 Lovenox - SQ 30 mg DAILY TONI Administration Fluvoxamine Maleate 100 mg 05/26/18 22:00 05/28/18 10:26 Luvox - PO 100 mg BID TONI Administration Sodium Chloride 1,000 mls @ 50 mls/hr 05/26/18 15:15 05/27/18 19:15 1/2 Normal Saline IV 50 mls/hr ASDIR TONI Administration Piperacillin Sod/Tazobactam 50 mls @ 100 mls/hr 05/26/18 18:00 05/28/18 10:25 Sod 2.25 gm/ Dextrose IVPB 100 mls/hr Q8H-IV TONI Administration Protocol Insulin Aspart 1 vial 05/26/18 16:30 05/28/18 06:49 Novolog Vial Sliding Scale - SQ Not Given TIDAC [facility] Protocol Insulin Detemir 80 units 05/27/18 07:00 05/28/18 06:47 Levemir Vial SQ 80 units DAILY@0700 [facility]ONI Administration Oxcarbazepine 150 mg 05/26/18 22:00 05/27/18 23:17 Trileptal - PO 150 mg HS TONI Administration Oxcarbazepine 300 mg 05/26/18 22:00 05/28/18 10:26 Trileptal - PO 300 mg BID TONI Administration Rosuvastatin Calcium 10 mg 05/27/18 22:00 05/27/18 23:18 Crestor - PO 10 mg HS TONI Administration Sitagliptin Phosphate 100 mg 05/27/18 07:00 05/28/18 06:47 Januvia - PO 100 mg DAILY@0700 [facility]ONI Administration Tamsulosin HCl 0.8 mg 05/28/18 11:30 Flomax - PO DAILY TONI Thiamine HCl 100 mg 05/27/18 10:00 05/28/18 10:26 Vitamin B1 - PO 100 mg DAILY TONI Administration Laboratory Results - last 24 hr 05/27/18 05/27/18 05/28/18 11:38 16:04 05:59 WBC RBC Hgb Hct MCV MCH MCHC RDW Plt Count MPV Absolute Neuts (auto) Neutrophils % Lymphocytes % Monocytes % Eosinophils % Basophils % Nucleated RBC % Sodium Potassium Chloride Carbon Dioxide Anion Gap BUN Creatinine Creat Clearance w eGFR POC Glucometer 267 150 127 Random Glucose Calcium Total Bilirubin AST ALT Alkaline Phosphatase Total Protein Albumin 05/28/18 05/28/18 05/28/18 07:00 07:00 11:23 WBC 10.1 H RBC 3.64 L Hgb 11.0 L Hct 31.7 L MCV 87.2 MCH 30.2 MCHC 34.6 RDW 12.9 Plt Count 176 MPV 7.6 Absolute Neuts (auto) 8.2 H Neutrophils % 81.0 Lymphocytes % 11.3 Monocytes % 6.9 Eosinophils % 0.5 D Basophils % 0.3 Nucleated RBC % 0 Sodium 138 Potassium 3.9 Chloride 102 Carbon Dioxide 27 Anion Gap 9 BUN 26 H Creatinine 1.2 Creat Clearance w eGFR 58.56 POC Glucometer 115 Random Glucose 119 H Calcium 8.8 Total Bilirubin 0.4 AST 8 L ALT 13 Alkaline Phosphatase 100 Total Protein 6.5 Albumin 3.0 L Microbiology 05/26/18 13:30 Urine Culture - Final Urine - Urine Clean Catch Escherichia Coli 05/26/18 12:45 Blood Culture - Preliminary Blood - Peripheral Venous NO GROWTH OBTAINED AFTER 24 HOURS, INCUBATION TO CONTINUE FOR 4 DAYS. 05/26/18 12:48 Blood Culture - Preliminary Blood - Peripheral Venous NO GROWTH OBTAINED AFTER 24 HOURS, INCUBATION TO CONTINUE FOR 4 DAYS. S1 S2 RRR Lungs clear Abd- soft, obese,NT, BS+ Edema trace chronic venous changes PLAN Check Portable KUB-- r/o obstruction IV fluids renal function better Renal and bladder sono noted-- has large post void urine residual-- enlarged prostate-- increase Flomax, continue Avodart iv antibiotics DVT prophylaxis-- Lovenox sc urine cultures noted-- Ecoli Problem List - Problems (1) Toxic metabolic encephalopathy Code(s): G92 - TOXIC ENCEPHALOPATHY (2) GUILLE (acute kidney injury) Code(s): N17.9 - ACUTE KIDNEY FAILURE, UNSPECIFIED (3) Sepsis Code(s): A41.9 - SEPSIS, UNSPECIFIED ORGANISM Qualifiers: Sepsis type: sepsis due to unspecified organism Qualified Code(s): A41.9 - Sepsis, unspecified organism (4) UTI (urinary tract infection) Code(s): N39.0 - URINARY TRACT INFECTION, SITE NOT SPECIFIED Qualifiers: Urinary tract infection type: site unspecified Hematuria presence: without hematuria Qualified Code(s): N39.0 - Urinary tract infection, site not specified (5) Obsessive compulsive disorder Code(s): F42.9 - OBSESSIVE-COMPULSIVE DISORDER, UNSPECIFIED
[2018-05-28 11:29] VITALS: BMI 40.1
--- NOTE | 2018-05-28 13:25 | PN ---
Progress Note, Physician History of Present Illness: stable looks a little dazed - Current Medication List Current Medications: Active Medications Acetaminophen (Tylenol -) 650 mg PO Q8H PRN PRN Reason: FEVER Duloxetine HCl (Cymbalta -) 60 mg PO DAILY [facility] Last Admin: 05/28/18 10:27 Dose: 60 mg Dutasteride (Avodart -) 0.5 mg PO DAILY [facility] Last Admin: 05/28/18 10:26 Dose: 0.5 mg Enoxaparin Sodium (Lovenox -) 30 mg SQ DAILY [facility] Last Admin: 05/28/18 10:27 Dose: 30 mg Fluvoxamine Maleate (Luvox -) 100 mg PO BID [facility] Last Admin: 05/28/18 10:26 Dose: 100 mg Piperacillin Sod/Tazobactam (Sod 2.25 gm/ Dextrose) 50 mls @ 100 mls/hr IVPB Q8H-IV [facility]; Protocol Last Admin: 05/28/18 10:25 Dose: 100 mls/hr Insulin Aspart (Novolog Vial Sliding Scale -) 1 vial SQ TIDAC [facility]; Protocol Last Admin: 05/28/18 06:49 Dose: Not Given Insulin Detemir (Levemir Vial) 80 units SQ DAILY@0700 [facility] Last Admin: 05/28/18 06:47 Dose: 80 units Oxcarbazepine (Trileptal -) 150 mg PO [facility] Last Admin: 05/27/18 23:17 Dose: 150 mg Oxcarbazepine (Trileptal -) 300 mg PO BID [facility] Last Admin: 05/28/18 10:26 Dose: 300 mg Rosuvastatin Calcium (Crestor -) 10 mg PO [facility] Last Admin: 05/27/18 23:18 Dose: 10 mg Sitagliptin Phosphate (Januvia -) 100 mg PO DAILY@0700 [facility] Last Admin: 05/28/18 06:47 Dose: 100 mg Tamsulosin HCl (Flomax -) 0.8 mg PO DAILY@0830 [facility] Thiamine HCl (Vitamin B1 -) 100 mg PO DAILY [facility] Last Admin: 05/28/18 10:26 Dose: 100 mg - Objective Vital Signs: Vital Signs Temperature 98.2 F 05/28/18 05:35 Pulse Rate 83 05/28/18 10:00 Respiratory Rate 20 05/28/18 10:00 Blood Pressure 143/68 05/28/18 10:00 O2 Sat by Pulse Oximetry (%) 96 05/28/18 09:00 Constitutional: Yes: No Distress, Calm, Obese Cardiovascular: Yes: Regular Rate and Rhythm Respiratory: Yes: Regular, CTA Bilaterally Gastrointestinal: Yes: Normal Bowel Sounds, Soft Musculoskeletal: Yes: WNL Extremities: Yes: WNL Neurological: Yes: Alert, Oriented Psychiatric: Yes: Alert, Oriented Labs: CBC, BMP 05/28/18 07:00 05/28/18 07:00 INR, PTT INR 1.07 (0.83-1.09) 05/26/18 12:35 Assessment/Plan patient who came in with ams probably due to uti now urine showing positive uti ams obesity confusion plan will continue abx await for identification of the bacteria' rest as per the team
[2018-05-28] MEDS ORDERED: cefTRIAXone SODIUM 1 GM VIAL ONE (16:25)
[2018-05-28] MEDS: CEFTRIAXONE 1 GM in DEXTROSE 5%-WATER - 50 ML IVPB SCH (16:34)
[2018-05-28] MEDS: ROSUVASTATIN CA 10 MG TABLET (FP) PO SCH (22:10)
[2018-05-28] MEDS: OXcarbazepine 150 MG TABLET (UD) PO SCH (22:12)
[2018-05-29] MEDS: sitaGLIPtin PHOSPHATE 100 MG TABLET (FP) PO SCH (06:37)
[2018-05-29] MEDS: INSULIN (LEVEMIR) 100 UNITS/ML UNITS SQ SCH (06:37)
[2018-05-29] MEDS: INSULIN SLIDING SCALE (NOVOLOG) 1 VIAL SQ SCH ×3 (06:40→16:28)
[2018-05-29 08:09] LABS: HEMATOCRIT 32.8 % (35.4-49); HEMOGLOBIN 11.4 GM/dL (11.7-16.9); MCH 30.3 pg (25.7-33.7); MCHC 34.7 g/dl (32.0-35.9); MEAN CELL VOLUME 87.4 fl (80-96); MEAN PLT VOLUME 7.2 fl (7.5-11.1); PLATELET COUNT 194 K/MM3 (134-434); RBC 3.75 M/mm3 (4.00-5.60); RDW 12.8 % (11.9-15.9); WHITE BLOOD COUNT 5.4 K/mm3 (4.0-10.0)
[2018-05-29 08:44] LABS: ANION GAP 11 MMOL/L (8-16); BLOOD UREA NITROGEN 19 mg/dL (7-18); CALCIUM 8.7 mg/dL (8.5-10.1); CHLORIDE 103 mmol/L (98-107); CO2 23 mmol/L (21-32); CREATININE 0.9 mg/dL (0.55-1.3); GLUCOSE,RANDOM 114 mg/dL (74-106); POTASSIUM 3.9 mmol/L (3.5-5.1); SODIUM 137 mmol/L (136-145)
[2018-05-29] MEDS ORDERED: DEXTROSE 5%-WATER - 50 ML IVPB ONE (09:11)
[2018-05-29] MEDS ORDERED: cefTRIAXone SODIUM 1 GM VIAL ONE (09:11)
[2018-05-29] MEDS: ENOXAPARIN NA (PORCINE) 30 MG/0.3 ML DISP.SYRIN SQ SCH (09:14)
[2018-05-29] MEDS: DULoxetine HCL 30 MG CAPSULE.DR (FP) PO SCH (09:14)
[2018-05-29] MEDS: DUTASTERIDE 0.5 MG CAP (FP) PO SCH (09:14)
[2018-05-29] MEDS: TAMSULOSIN HCL 0.4 MG CAP PO SCH (09:14)
[2018-05-29] MEDS: CEFTRIAXONE 1 GM in DEXTROSE 5%-WATER - 50 ML IVPB SCH (09:15)
[2018-05-29] MEDS: THIAMINE HCL 100 MG TABLET (FP) PO SCH (09:15)
[2018-05-29] MEDS: OXcarbazepine 300 MG TABLET (UD) PO SCH ×2 (09:17→21:25)
--- NOTE | 2018-05-29 10:17 | PN ---
Progress Note (short form) - Note Progress Note: Awake and more alert Xray- negative for SBO No abd pain poor affect Vital Signs - 24 hr 05/28/18 05/28/18 05/28/18 14:00 19:00 21:00 Temperature 98.1 F 99.3 F Pulse Rate 87 86 Respiratory 21 H 20 20 Rate Blood Pressure 147/65 142/68 O2 Sat by Pulse 96 Oximetry (%) 05/28/18 05/29/18 22:00 05:35 Temperature 98.9 F 98.2 F Pulse Rate 88 79 Respiratory 19 20 Rate Blood Pressure 140/69 146/74 O2 Sat by Pulse Oximetry (%) Current Medications Generic Name Dose Route Start Last Admin Trade Name Freq PRN Reason Stop Dose Admin Acetaminophen 650 mg 05/26/18 15:07 Tylenol - PO Q8H PRN FEVER Duloxetine HCl 60 mg 05/27/18 10:00 05/29/18 09:14 Cymbalta - PO 60 mg DAILY TONI Administration Dutasteride 0.5 mg 05/27/18 10:00 05/29/18 09:14 Avodart - PO 0.5 mg DAILY [facility]ONI Administration Enoxaparin Sodium 30 mg 05/27/18 13:30 05/29/18 09:14 Lovenox - SQ 30 mg DAILY [facility]ONI Administration Fluvoxamine Maleate 100 mg 05/26/18 22:00 05/29/18 09:17 Luvox - PO 100 mg BID [facility]ONI Administration Ceftriaxone Sodium 1 gm/ 50 mls @ 100 mls/hr 05/28/18 14:00 05/29/18 09:15 Dextrose IVPB 100 mls/hr DAILY [facility]ONI Administration Protocol Insulin Aspart 1 vial 05/26/18 16:30 05/29/18 06:40 Novolog Vial Sliding Scale - SQ Not Given TIDAC [facility] Protocol Insulin Detemir 80 units 05/27/18 07:00 05/29/18 06:37 Levemir Vial SQ 80 units DAILY@0700 [facility]ONI Administration Oxcarbazepine 150 mg 05/26/18 22:00 05/28/18 22:12 Trileptal - PO 150 mg HS [facility]ONI Administration Oxcarbazepine 300 mg 05/26/18 22:00 05/29/18 09:17 Trileptal - PO 300 mg BID TONI Administration Rosuvastatin Calcium 10 mg 05/27/18 22:00 05/28/18 22:10 Crestor - PO 10 mg HS TONI Administration Sitagliptin Phosphate 100 mg 05/27/18 07:00 05/29/18 06:37 Januvia - PO 100 mg DAILY@0700 [facility]ONI Administration Tamsulosin HCl 0.8 mg 05/29/18 08:30 05/29/18 09:14 Flomax - PO 0.8 mg DAILY@0830 [facility]ONI Administration Thiamine HCl 100 mg 05/27/18 10:00 05/29/18 09:15 Vitamin B1 - PO 100 mg DAILY [facility]ONI Administration Laboratory Results - last 24 hr 05/28/18 05/28/18 05/29/18 11:23 16:38 06:40 WBC RBC Hgb Hct MCV MCH MCHC RDW Plt Count MPV Sodium Potassium Chloride Carbon Dioxide Anion Gap BUN Creatinine Creat Clearance w eGFR POC Glucometer 115 86 114 Random Glucose Calcium 05/29/18 05/29/18 07:45 07:45 WBC 5.4 RBC 3.75 L Hgb 11.4 L Hct 32.8 L MCV 87.4 MCH 30.3 MCHC 34.7 RDW 12.8 Plt Count 194 MPV 7.2 L Sodium 137 Potassium 3.9 Chloride 103 Carbon Dioxide 23 Anion Gap 11 BUN 19 H Creatinine 0.9 Creat Clearance w eGFR > 60 POC Glucometer Random Glucose 114 H Calcium 8.7 S1 S2 RRR Lungs clear Abd- soft, obese,NT, BS+ Edema trace chronic venous changes PLAN may resume diet likely has DM gastroparesis renal function better Renal and bladder sono noted-- has large post void urine residual-- enlarged prostate-- increase Flomax, continue Avodart iv antibiotics DVT prophylaxis-- Lovenox sc urine cultures noted-- Ecoli Problem List - Problems (1) Toxic metabolic encephalopathy Code(s): G92 - TOXIC ENCEPHALOPATHY (2) GUILLE (acute kidney injury) Code(s): N17.9 - ACUTE KIDNEY FAILURE, UNSPECIFIED (3) Sepsis Code(s): A41.9 - SEPSIS, UNSPECIFIED ORGANISM Qualifiers: Sepsis type: sepsis due to unspecified organism Qualified Code(s): A41.9 - Sepsis, unspecified organism (4) UTI (urinary tract infection) Code(s): N39.0 - URINARY TRACT INFECTION, SITE NOT SPECIFIED Qualifiers: Urinary tract infection type: site unspecified Hematuria presence: without hematuria Qualified Code(s): N39.0 - Urinary tract infection, site not specified (5) Obsessive compulsive disorder Code(s): F42.9 - OBSESSIVE-COMPULSIVE DISORDER, UNSPECIFIED
--- NOTE | 2018-05-29 10:48 | PN ---
Progress Note, Physician History of Present Illness: stable more awake - Current Medication List Current Medications: Active Medications Acetaminophen (Tylenol -) 650 mg PO Q8H PRN PRN Reason: FEVER Duloxetine HCl (Cymbalta -) 60 mg PO DAILY [facility] Last Admin: 05/29/18 09:14 Dose: 60 mg Dutasteride (Avodart -) 0.5 mg PO DAILY [facility] Last Admin: 05/29/18 09:14 Dose: 0.5 mg Enoxaparin Sodium (Lovenox -) 30 mg SQ DAILY [facility] Last Admin: 05/29/18 09:14 Dose: 30 mg Fluvoxamine Maleate (Luvox -) 100 mg PO BID [facility] Last Admin: 05/29/18 09:17 Dose: 100 mg Ceftriaxone Sodium 1 gm/ (Dextrose) 50 mls @ 100 mls/hr IVPB DAILY [facility]; Protocol Last Admin: 05/29/18 09:15 Dose: 100 mls/hr Insulin Aspart (Novolog Vial Sliding Scale -) 1 vial SQ TIDAC [facility]; Protocol Last Admin: 05/29/18 06:40 Dose: Not Given Insulin Detemir (Levemir Vial) 80 units SQ DAILY@0700 [facility] Last Admin: 05/29/18 06:37 Dose: 80 units Oxcarbazepine (Trileptal -) 150 mg PO [facility] Last Admin: 05/28/18 22:12 Dose: 150 mg Oxcarbazepine (Trileptal -) 300 mg PO BID [facility] Last Admin: 05/29/18 09:17 Dose: 300 mg Rosuvastatin Calcium (Crestor -) 10 mg PO [facility] Last Admin: 05/28/18 22:10 Dose: 10 mg Sitagliptin Phosphate (Januvia -) 100 mg PO DAILY@0700 [facility] Last Admin: 05/29/18 06:37 Dose: 100 mg Tamsulosin HCl (Flomax -) 0.8 mg PO DAILY@0830 [facility] Last Admin: 05/29/18 09:14 Dose: 0.8 mg Thiamine HCl (Vitamin B1 -) 100 mg PO DAILY [facility] Last Admin: 05/29/18 09:15 Dose: 100 mg - Objective Vital Signs: Vital Signs Temperature 98.2 F 05/29/18 05:35 Pulse Rate 79 05/29/18 05:35 Respiratory Rate 20 05/29/18 05:35 Blood Pressure 146/74 03/13/19 05:35 O2 Sat by Pulse Oximetry (%) 96 05/28/18 21:00 Constitutional: Yes: No Distress, Calm Cardiovascular: Yes: Regular Rate and Rhythm Respiratory: Yes: Regular, CTA Bilaterally Gastrointestinal: Yes: Soft Genitourinary: Yes: Bone Present Musculoskeletal: Yes: WNL Extremities: Yes: WNL Neurological: Yes: Alert, Oriented Psychiatric: Yes: Alert Labs: CBC, BMP 05/29/18 07:45 05/29/18 07:45 INR, PTT INR 1.07 (0.83-1.09) 05/26/18 12:35 Assessment/Plan Problem List - Problems (1) Toxic metabolic encephalopathy Code(s): G92 - TOXIC ENCEPHALOPATHY (2) GUILLE (acute kidney injury) Code(s): N17.9 - ACUTE KIDNEY FAILURE, UNSPECIFIED (3) Sepsis Code(s): A41.9 - SEPSIS, UNSPECIFIED ORGANISM Qualifiers: Sepsis type: sepsis due to unspecified organism Qualified Code(s): A41.9 - Sepsis, unspecified organism (4) UTI (urinary tract infection) Code(s): N39.0 - URINARY TRACT INFECTION, SITE NOT SPECIFIED Qualifiers: Urinary tract infection type: site unspecified Hematuria presence: without hematuria Qualified Code(s): N39.0 - Urinary tract infection, site not specified (5) Obsessive compulsive disorder Code(s): F42.9 - OBSESSIVE-COMPULSIVE DISORDER, UNSPECIFIED plan will continue abx identification of the bacteria noted rest as per the team
[2018-05-29] MEDS ORDERED: INSULIN (NOVOLOG) ASPART 100 UNITS/ML 10ML VIAL ONE (16:27)
[2018-05-29] MEDS ORDERED: PT OWN MED DRAWER 7, Y5N ONE (21:15)
[2018-05-29] MEDS: ROSUVASTATIN CA 10 MG TABLET (FP) PO SCH (21:24)
[2018-05-29] MEDS: OXcarbazepine 150 MG TABLET (UD) PO SCH (21:25)
[2018-05-30] MEDS: sitaGLIPtin PHOSPHATE 100 MG TABLET (FP) PO SCH (06:23)
[2018-05-30] MEDS: INSULIN (LEVEMIR) 100 UNITS/ML UNITS SQ SCH (06:24)
[2018-05-30] MEDS: INSULIN SLIDING SCALE (NOVOLOG) 1 VIAL SQ SCH ×3 (06:25→16:39)
[2018-05-30] MEDS ORDERED: PT OWN MED DRAWER 7, Y5N ONE ×4 (06:45→21:12)
[2018-05-30] MEDS ORDERED: INSULIN (NOVOLOG) ASPART 100 UNITS/ML 10ML VIAL ONE (06:46)
[2018-05-30] MEDS ORDERED: cefTRIAXone SODIUM 1 GM VIAL ONE (09:04)
[2018-05-30] MEDS ORDERED: DEXTROSE 5%-WATER - 50 ML IVPB ONE (09:04)
[2018-05-30] MEDS: CEFTRIAXONE 1 GM in DEXTROSE 5%-WATER - 50 ML IVPB SCH (09:10)
[2018-05-30] MEDS: DULoxetine HCL 30 MG CAPSULE.DR (FP) PO SCH (09:10)
[2018-05-30] MEDS: TAMSULOSIN HCL 0.4 MG CAP PO SCH (09:10)
[2018-05-30] MEDS: DUTASTERIDE 0.5 MG CAP (FP) PO SCH (09:11)
[2018-05-30] MEDS: ENOXAPARIN NA (PORCINE) 30 MG/0.3 ML DISP.SYRIN SQ SCH (09:11)
[2018-05-30] MEDS: OXcarbazepine 300 MG TABLET (UD) PO SCH ×2 (09:19→21:20)
[2018-05-30] MEDS: THIAMINE HCL 100 MG TABLET (FP) PO SCH (11:00)
--- NOTE | 2018-05-30 11:27 | PN ---
Progress Note (short form) - Note Progress Note: Awake and more sitting in chair No distress pt tells me that he ambulates with walker He has an external fournier catheter Vital Signs - 24 hr 05/29/18 05/29/18 05/29/18 15:53 21:00 22:00 Temperature 99.2 F 98.8 F Pulse Rate 92 H 80 Respiratory 20 20 20 Rate Blood Pressure 147/64 144/72 O2 Sat by Pulse 94 L Oximetry (%) 05/30/18 05:40 Temperature 98.6 F Pulse Rate 75 Respiratory 20 Rate Blood Pressure 153/73 O2 Sat by Pulse Oximetry (%) Current Medications Generic Name Dose Route Start Last Admin Trade Name Freq PRN Reason Stop Dose Admin Acetaminophen 650 mg 05/26/18 15:07 Tylenol - PO Q8H PRN FEVER Duloxetine HCl 60 mg 05/27/18 10:00 05/30/18 09:10 Cymbalta - PO 60 mg DAILY TNOI Administration Dutasteride 0.5 mg 05/27/18 10:00 05/30/18 09:11 Avodart - PO 0.5 mg DAILY [facility]ONI Administration Enoxaparin Sodium 30 mg 05/27/18 13:30 05/30/18 09:11 Lovenox - SQ 30 mg DAILY [facility]ONI Administration Fluvoxamine Maleate 100 mg 05/26/18 22:00 05/30/18 09:11 Luvox - PO 100 mg BID TONI Administration Ceftriaxone Sodium 1 gm/ 50 mls @ 100 mls/hr 05/28/18 14:00 05/30/18 09:10 Dextrose IVPB 100 mls/hr DAILY [facility]ONI Administration Protocol Insulin Aspart 1 vial 05/26/18 16:30 05/30/18 06:25 Novolog Vial Sliding Scale - SQ 2 units TIDAC [facility] Administration Protocol Insulin Detemir 80 units 05/27/18 07:00 05/30/18 06:24 Levemir Vial SQ 80 units DAILY@0700 [facility]ONI Administration Oxcarbazepine 150 mg 05/26/18 22:00 05/29/18 21:25 Trileptal - PO 150 mg HS [facility]ONI Administration Oxcarbazepine 300 mg 05/26/18 22:00 05/30/18 09:19 Trileptal - PO 300 mg BID [facility]ONI Administration Rosuvastatin Calcium 10 mg 05/27/18 22:00 05/29/18 21:24 Crestor - PO 10 mg HS [facility]ONI Administration Sitagliptin Phosphate 100 mg 05/27/18 07:00 05/30/18 06:23 Januvia - PO 100 mg DAILY@0700 [facility]I Administration Tamsulosin HCl 0.8 mg 05/29/18 08:30 05/30/18 09:10 Flomax - PO 0.8 mg DAILY@0830 [facility]I Administration Thiamine HCl 100 mg 05/27/18 10:00 05/29/18 09:15 Vitamin B1 - PO 100 mg DAILY [facility] Administration Laboratory Results - last 24 hr 05/26/18 05/29/18 05/30/18 20:05 16:25 05:55 POC Glucometer 226 172 Oxcarbazepine 30 S1 S2 RRR Lungs clear Abd- soft, obese,NT, BS+ Edema trace chronic venous changes PLAN renal function - normal Renal and bladder sono noted-- has large post void urine residual-- enlarged prostate-- increased Flomax, continue Avodart iv antibiotics DVT prophylaxis-- Lovenox sc-- change to full dose urine cultures noted-- Ecoli continue with IV ceftriaxone per ID PT eval Problem List - Problems (1) Toxic metabolic encephalopathy Code(s): G92 - TOXIC ENCEPHALOPATHY (2) GUILLE (acute kidney injury) Code(s): N17.9 - ACUTE KIDNEY FAILURE, UNSPECIFIED (3) Sepsis Code(s): A41.9 - SEPSIS, UNSPECIFIED ORGANISM Qualifiers: Sepsis type: sepsis due to unspecified organism Qualified Code(s): A41.9 - Sepsis, unspecified organism (4) UTI (urinary tract infection) Code(s): N39.0 - URINARY TRACT INFECTION, SITE NOT SPECIFIED Qualifiers: Urinary tract infection type: site unspecified Hematuria presence: without hematuria Qualified Code(s): N39.0 - Urinary tract infection, site not specified (5) Obsessive compulsive disorder Code(s): F42.9 - OBSESSIVE-COMPULSIVE DISORDER, UNSPECIFIED
[2018-05-30] MEDS ORDERED: DOCUSATE SODIUM 100 MG CAPSULE (FP) PO PRN (11:28)
--- NOTE | 2018-05-30 15:26 | PN ---
Progress Note, Physician - Current Medication List Current Medications: Active Medications Acetaminophen (Tylenol -) 650 mg PO Q8H PRN PRN Reason: FEVER Docusate Sodium (Colace -) 100 mg PO Q8H PRN PRN Reason: CONSTIPATION Duloxetine HCl (Cymbalta -) 60 mg PO DAILY [facility] Last Admin: 05/30/18 09:10 Dose: 60 mg Dutasteride (Avodart -) 0.5 mg PO DAILY [facility] Last Admin: 05/30/18 09:11 Dose: 0.5 mg Enoxaparin Sodium (Lovenox -) 40 mg SQ DAILY [facility] Fluvoxamine Maleate (Luvox -) 100 mg PO BID [facility] Last Admin: 05/30/18 09:11 Dose: 100 mg Ceftriaxone Sodium 1 gm/ (Dextrose) 50 mls @ 100 mls/hr IVPB DAILY [facility]; Protocol Last Admin: 05/30/18 09:10 Dose: 100 mls/hr Insulin Aspart (Novolog Vial Sliding Scale -) 1 vial SQ TIDAC [facility]; Protocol Last Admin: 05/30/18 12:00 Dose: 2 units Insulin Detemir (Levemir Vial) 80 units SQ DAILY@0700 [facility] Last Admin: 05/30/18 06:24 Dose: 80 units Oxcarbazepine (Trileptal -) 150 mg PO [facility] Last Admin: 05/29/18 21:25 Dose: 150 mg Oxcarbazepine (Trileptal -) 300 mg PO BID [facility] Last Admin: 05/30/18 09:19 Dose: 300 mg Polyethylene Glycol (Miralax (For Daily Use) -) 17 gm PO DAILY [facility] Rosuvastatin Calcium (Crestor -) 10 mg PO HS [facility] Last Admin: 05/29/18 21:24 Dose: 10 mg Sitagliptin Phosphate (Januvia -) 100 mg PO DAILY@0700 [facility] Last Admin: 05/30/18 06:23 Dose: 100 mg Tamsulosin HCl (Flomax -) 0.8 mg PO DAILY@0830 [facility] Last Admin: 05/30/18 09:10 Dose: 0.8 mg Thiamine HCl (Vitamin B1 -) 100 mg PO DAILY [facility] Last Admin: 05/29/18 09:15 Dose: 100 mg - Objective Vital Signs: Vital Signs Temperature 98.2 F 05/30/18 14:19 Pulse Rate 88 05/30/18 14:19 Respiratory Rate 18 05/30/18 14:19 Blood Pressure 135/73 05/30/18 14:19 O2 Sat by Pulse Oximetry (%) 98 05/30/18 09:00 Labs: CBC, BMP 05/29/18 07:45 05/29/18 07:45 INR, PTT INR 1.07 (0.83-1.09) 05/26/18 12:35
[2018-05-30] MEDS: POLYETHYLENE GLYCOL 3350 119 GM BTL PO SCH (16:39)
[2018-05-30] MEDS: ROSUVASTATIN CA 10 MG TABLET (FP) PO SCH (21:20)
[2018-05-30] MEDS: OXcarbazepine 150 MG TABLET (UD) PO SCH (21:21)
[2018-05-31] MEDS ORDERED: INSULIN (NOVOLOG) ASPART 100 UNITS/ML 10ML VIAL ONE ×2 (06:18→11:38)
[2018-05-31] MEDS: sitaGLIPtin PHOSPHATE 100 MG TABLET (FP) PO SCH (06:22)
[2018-05-31] MEDS: INSULIN SLIDING SCALE (NOVOLOG) 1 VIAL SQ SCH ×3 (06:22→17:44)
[2018-05-31] MEDS: INSULIN (LEVEMIR) 100 UNITS/ML UNITS SQ SCH (06:23)
[2018-05-31 07:49] LABS: HEMATOCRIT 31.9 % (35.4-49); HEMOGLOBIN 11.3 GM/dL (11.7-16.9); MCH 31.1 pg (25.7-33.7); MCHC 35.4 g/dl (32.0-35.9); MEAN CELL VOLUME 87.8 fl (80-96); MEAN PLT VOLUME 7.3 fl (7.5-11.1); PLATELET COUNT 213 K/MM3 (134-434); RBC 3.63 M/mm3 (4.00-5.60); WHITE BLOOD COUNT 6.2 K/mm3 (4.0-10.0)
[2018-05-31 08:30] LABS: ALBUMIN 2.9 g/dl (3.4-5.0); ALK PHOS 96 U/L (45-117); ANION GAP 7 MMOL/L (8-16); BILIRUBIN,TOTAL 0.3 mg/dL (0.2-1); BLOOD UREA NITROGEN 24 mg/dL (7-18); CALCIUM 8.6 mg/dL (8.5-10.1); CHLORIDE 103 mmol/L (98-107); CO2 25 mmol/L (21-32); GLUCOSE,RANDOM 203 mg/dL (74-106); POTASSIUM 3.8 mmol/L (3.5-5.1); SGOT/AST 15 U/L (15-37); SGPT/ALT 21 U/L (13-61); SODIUM 135 mmol/L (136-145); TOT PROT 6.4 g/dl (6.4-8.2)
[2018-05-31] MEDS ORDERED: ENOXAPARIN NA (PORCINE) 30 MG/0.3 ML DISP.SYRIN SQ SCH (10:00)
[2018-05-31] MEDS ORDERED: cefTRIAXone SODIUM 1 GM VIAL ONE (10:13)
[2018-05-31] MEDS ORDERED: PT OWN MED DRAWER 7, Y5N ONE ×2 (10:13→21:04)
[2018-05-31] MEDS ORDERED: DEXTROSE 5%-WATER - 50 ML IVPB ONE (10:14)
[2018-05-31] MEDS: TAMSULOSIN HCL 0.4 MG CAP PO SCH (10:23)
[2018-05-31] MEDS: DULoxetine HCL 30 MG CAPSULE.DR (FP) PO SCH (10:23)
[2018-05-31] MEDS: CEFTRIAXONE 1 GM in DEXTROSE 5%-WATER - 50 ML IVPB SCH (10:24)
[2018-05-31] MEDS: OXcarbazepine 300 MG TABLET (UD) PO SCH ×2 (10:26→21:06)
[2018-05-31] MEDS: DUTASTERIDE 0.5 MG CAP (FP) PO SCH (10:27)
--- NOTE | 2018-05-31 11:05 | PN ---
Progress Note (short form) - Note Progress Note: -pt seen/ examined sitting in chair fournier placed yesterday due to urine retention denies pain afebrile Vital Signs Temp 98.3 F 05/31/18 05:55 Pulse 71 05/31/18 05:55 Resp 20 05/31/18 05:55 BP 147/94 05/31/18 05:55 Pulse Ox 97 05/30/18 21:00 Intake & Output 05/30/18 05/30/18 05/31/18 11:59 23:59 11:59 Intake Total 80 600 Output Total 0 900 800 Balance 80 -300 -800 Intake: Oral 80 600 Output: Urine 0 900 800 External Catheter 300 Fournier 600 800 Void 0 Other: Voiding Method External Catheter External Catheter # Unmeasured Voids External Catheter 2 Bowel Movement No Active Medications Acetaminophen (Tylenol -) 650 mg PO Q8H PRN PRN Reason: FEVER Docusate Sodium (Colace -) 100 mg PO Q8H PRN PRN Reason: CONSTIPATION Duloxetine HCl (Cymbalta -) 60 mg PO DAILY [facility] Last Admin: 05/31/18 10:23 Dose: 60 mg Dutasteride (Avodart -) 0.5 mg PO DAILY [facility] Last Admin: 05/31/18 10:27 Dose: 0.5 mg Enoxaparin Sodium (Lovenox -) 40 mg SQ DAILY [facility] Last Admin: 05/31/18 10:23 Dose: 40 mg Fluvoxamine Maleate (Luvox -) 100 mg PO BID [facility] Last Admin: 05/31/18 10:24 Dose: 100 mg Ceftriaxone Sodium 1 gm/ (Dextrose) 50 mls @ 100 mls/hr IVPB DAILY [facility]; Protocol Last Admin: 05/31/18 10:24 Dose: 100 mls/hr Insulin Aspart (Novolog Vial Sliding Scale -) 1 vial SQ TIDAC [facility]; Protocol Last Admin: 05/31/18 06:22 Dose: 4 units Insulin Detemir (Levemir Vial) 80 units SQ DAILY@0700 [facility] Last Admin: 05/31/18 06:23 Dose: 80 units Oxcarbazepine (Trileptal -) 150 mg PO HS [facility] Last Admin: 05/30/18 21:21 Dose: 150 mg Oxcarbazepine (Trileptal -) 300 mg PO BID [facility] Last Admin: 05/31/18 10:26 Dose: 300 mg Polyethylene Glycol (Miralax (For Daily Use) -) 17 gm PO DAILY [facility] Last Admin: 05/30/18 16:39 Dose: 17 gm Rosuvastatin Calcium (Crestor -) 10 mg PO HS [facility] Last Admin: 05/30/18 21:20 Dose: 10 mg Sitagliptin Phosphate (Januvia -) 100 mg PO DAILY@0700 [facility] Last Admin: 05/31/18 06:22 Dose: 100 mg Tamsulosin HCl (Flomax -) 0.8 mg PO DAILY@0830 [facility] Last Admin: 05/31/18 10:23 Dose: 0.8 mg Thiamine HCl (Vitamin B1 -) 100 mg PO DAILY [facility] Last Admin: 05/30/18 11:00 Dose: 100 mg CBC, BMP 05/31/18 06:30 05/31/18 06:30 Microbiology 05/26/18 12:45 Blood Culture - Preliminary Blood - Peripheral Venous NO GROWTH OBTAINED AFTER 96 HOURS, INCUBATION TO CONTINUE FOR 1 DAYS. 05/26/18 12:48 Blood Culture - Preliminary Blood - Peripheral Venous NO GROWTH OBTAINED AFTER 96 HOURS, INCUBATION TO CONTINUE FOR 1 DAYS. Physical Exam. S1 S2 RRR Lungs clear Abd- soft, obese,NT, BS+ Edema trace chronic venous changes + ve fournier PLAN stable flomax dose increased maintain fournier today if stable -- will d/c in am discussed with nursing staff also Anticipate d/c in am BP also elevated add BB
[2018-05-31] MEDS: POLYETHYLENE GLYCOL 3350 119 GM BTL PO SCH (11:55)
[2018-05-31] MEDS: THIAMINE HCL 100 MG TABLET (FP) PO SCH (11:55)
--- NOTE | 2018-05-31 14:17 | PN ---
Progress Note, Physician - Current Medication List Current Medications: Active Medications Acetaminophen (Tylenol -) 650 mg PO Q8H PRN PRN Reason: FEVER Docusate Sodium (Colace -) 100 mg PO Q8H PRN PRN Reason: CONSTIPATION Duloxetine HCl (Cymbalta -) 60 mg PO DAILY [facility] Last Admin: 05/31/18 10:23 Dose: 60 mg Dutasteride (Avodart -) 0.5 mg PO DAILY [facility] Last Admin: 05/31/18 10:27 Dose: 0.5 mg Enoxaparin Sodium (Lovenox -) 40 mg SQ DAILY [facility] Last Admin: 05/31/18 10:23 Dose: 40 mg Fluvoxamine Maleate (Luvox -) 100 mg PO BID [facility] Last Admin: 05/31/18 10:24 Dose: 100 mg Ceftriaxone Sodium 1 gm/ (Dextrose) 50 mls @ 100 mls/hr IVPB DAILY [facility]; Protocol Last Admin: 05/31/18 10:24 Dose: 100 mls/hr Insulin Aspart (Novolog Vial Sliding Scale -) 1 vial SQ TIDAC [facility]; Protocol Last Admin: 05/31/18 11:54 Dose: 4 units Insulin Detemir (Levemir Vial) 80 units SQ DAILY@0700 [facility] Last Admin: 05/31/18 06:23 Dose: 80 units Oxcarbazepine (Trileptal -) 150 mg PO [facility] Last Admin: 05/30/18 21:21 Dose: 150 mg Oxcarbazepine (Trileptal -) 300 mg PO BID [facility] Last Admin: 05/31/18 10:26 Dose: 300 mg Polyethylene Glycol (Miralax (For Daily Use) -) 17 gm PO DAILY [facility] Last Admin: 05/31/18 11:55 Dose: 17 gm Rosuvastatin Calcium (Crestor -) 10 mg PO [facility] Last Admin: 05/30/18 21:20 Dose: 10 mg Sitagliptin Phosphate (Januvia -) 100 mg PO DAILY@0700 [facility] Last Admin: 05/31/18 06:22 Dose: 100 mg Tamsulosin HCl (Flomax -) 0.8 mg PO DAILY@0830 [facility] Last Admin: 05/31/18 10:23 Dose: 0.8 mg Thiamine HCl (Vitamin B1 -) 100 mg PO DAILY [facility] Last Admin: 05/31/18 11:55 Dose: 100 mg - Objective Vital Signs: Vital Signs Temperature 98 F 05/31/18 10:00 Pulse Rate 74 05/31/18 10:00 Respiratory Rate 20 05/31/18 10:00 Blood Pressure 150/73 05/31/18 10:00 O2 Sat by Pulse Oximetry (%) 97 05/30/18 21:00 Labs: CBC, BMP 05/31/18 06:30 05/31/18 06:30 INR, PTT INR 1.07 (0.83-1.09) 05/26/18 12:35
[2018-05-31] MEDS: METOPROLOL TARTRATE 25 MG TABLET (FP) PO SCH (21:05)
[2018-05-31] MEDS: ROSUVASTATIN CA 10 MG TABLET (FP) PO SCH (21:05)
[2018-05-31] MEDS: OXcarbazepine 150 MG TABLET (UD) PO SCH (21:06)
[2018-06-01] MEDS: sitaGLIPtin PHOSPHATE 100 MG TABLET (FP) PO SCH (06:41)
[2018-06-01] MEDS: INSULIN SLIDING SCALE (NOVOLOG) 1 VIAL SQ SCH ×2 (06:41→12:02)
[2018-06-01] MEDS: INSULIN (LEVEMIR) 100 UNITS/ML UNITS SQ SCH (06:44)
[2018-06-01] MEDS ORDERED: INSULIN (NOVOLOG) ASPART 100 UNITS/ML 10ML VIAL ONE ×2 (06:55→13:08)
[2018-06-01] MEDS ORDERED: DEXTROSE 5%-WATER - 50 ML IVPB ONE (09:20)
[2018-06-01] MEDS ORDERED: cefTRIAXone SODIUM 1 GM VIAL ONE (09:20)
[2018-06-01] MEDS ORDERED: ENOXAPARIN NA (PORCINE) 40 MG/0.4 ML DISP.SYRIN SQ SCH ×2 (09:21→10:00)
[2018-06-01] MEDS: CEFTRIAXONE 1 GM in DEXTROSE 5%-WATER - 50 ML IVPB SCH (09:31)
[2018-06-01] MEDS: DULoxetine HCL 30 MG CAPSULE.DR (FP) PO SCH (09:34)
[2018-06-01] MEDS: TAMSULOSIN HCL 0.4 MG CAP PO SCH (09:34)
[2018-06-01] MEDS: METOPROLOL TARTRATE 25 MG TABLET (FP) PO SCH (09:34)
[2018-06-01] MEDS: DUTASTERIDE 0.5 MG CAP (FP) PO SCH (09:35)
[2018-06-01] MEDS: THIAMINE HCL 100 MG TABLET (FP) PO SCH (09:35)
[2018-06-01] MEDS: POLYETHYLENE GLYCOL 3350 119 GM BTL PO SCH (09:38)
[2018-06-01] MEDS: OXcarbazepine 300 MG TABLET (UD) PO SCH (09:38)
--- NOTE | 2018-06-01 11:53 | DS ---
Physical Examination Vital Signs: Vital Signs Temperature 98.8 F 06/01/18 05:17 Pulse Rate 76 06/01/18 05:17 Respiratory Rate 20 06/01/18 05:17 Blood Pressure 138/76 06/01/18 05:17 O2 Sat by Pulse Oximetry (%) 98 05/31/18 21:00 Findings/Remarks: Awake/ comfortable no complains Rn reports fournier was again removed last night -- only to be placed back again pt otherwise comfortable passing urine Constitutional: Yes: No Distress Eyes: Yes: Conjunctiva Clear Neck: Yes: Supple Cardiovascular: Yes: Regular Rate and Rhythm Respiratory: Yes: CTA Bilaterally Gastrointestinal: Yes: Soft, Abdomen, Obese Renal/: Yes: Fournier Present Edema: No Neurological: Yes: Alert Labs: CBC, BMP 05/31/18 06:30 05/31/18 06:30 Discharge Summary Reason For Visit: GUILLE, UTI, SEPSIS Current Active Problems GUILLE (acute kidney injury) (Acute) Obsessive compulsive disorder (Acute) Sepsis (Acute) Toxic metabolic encephalopathy (Acute) UTI (urinary tract infection) (Acute) Hospital Course: 78 yo M with h/o NIDDM, HTN, HLD, OCD, BPH, BIBA from [facility] ([facility]) confusion and fever. Per EMS patient found to be diaphoretic, with oral temp 101.0. pt treated with abx for uti i/d followed fournier placed for urinary retention -- failed attempts to removal flomax dose increased u/s bladder -- large post void urine-- enlarge prostate otherwise stable for d/c Check psa and voiding trial in [facility] Consider urology eval as out pt will d/c back to [facility] . Discussed with nursing staff also. Condition: Stable - Instructions Referrals: Aida Hurley MD [Primary Care Provider] - - Home Medications Comprehensive Discharge Medication List: Ambulatory Orders Acetaminophen [Tylenol] 650 mg PO ONCE 05/26/18 Duloxetine HCl [Cymbalta -] 60 mg PO DAILY 05/26/18 Dutasteride [Avodart] 0.5 mg PO DAILY 05/26/18 Fluvoxamine Maleate [Luvox -] 100 mg PO BID 05/26/18 Furosemide [Lasix -] 40 mg PO DAILY 05/26/18 Glucosamine Sulfate Dipot Chlr [Glucosamine] 500 mg PO BID 05/26/18 Insulin (LOG) Aspart [NovoLOG -] 0 units SQ TID 05/26/18 Insulin (Levemir) [Levemir Vial] 80 unit SQ DAILY 05/26/18 Meloxicam [Mobic] 15 mg PO HS 05/26/18 Metformin HCl [Glucophage] 1,000 mg PO BID 05/26/18 Oxcarbazepine [Trileptal -] 300 mg PO BID 05/26/18 Oxcarbazepine [Trileptal] 150 mg PO HS 05/26/18 Rosuvastatin [Crestor -] 10 mg PO DAILY 05/26/18 Sitagliptin Phosphate [Januvia -] 100 mg PO DAILY@0700 05/26/18 Spironolactone [Aldactone -] 25 mg PO BID 05/26/18 Thiamine HCl [Vitamin B1 -] 100 mg PO DAILY 05/26/18 Docusate Sodium [Colace -] 100 mg PO Q8H PRN capsule 06/01/18 Duloxetine HCl [Cymbalta -] 60 mg PO DAILY capsule. 06/01/18 Enoxaparin [Lovenox -] 40 mg SQ DAILY disp.syrin 06/01/18 Insulin (Levemir) [Levemir Vial] 80 units SQ DAILY@0700 units 06/01/18 Metoprolol Tartrate [Lopressor -] 25 mg PO BID tablet 06/01/18 Polyethylene Glycol 3350 [Miralax 119 gm Btl -] 17 gm PO DAILY bottle 06/01/18 Tamsulosin HCl [Flomax -] 0.8 mg PO DAILY@0830 cap.er.24h 06/01/18
[2018-06-01 15:37] VITALS: BP 138/69; PULSE 67; TEMP 98.3
--- NOTE | 2018-06-01 16:43 | PN ---
Progress Note, Physician History of Present Illness: Pt seen and examined. Events noted, labs reviewed. Fournier had to be placed again , failed trial last night. Otherwise afebrile, feels well. - Current Medication List Current Medications: Active Medications Acetaminophen (Tylenol -) 650 mg PO Q8H PRN PRN Reason: FEVER Docusate Sodium (Colace -) 100 mg PO Q8H PRN PRN Reason: CONSTIPATION Duloxetine HCl (Cymbalta -) 60 mg PO DAILY [facility] Last Admin: 06/01/18 09:34 Dose: 60 mg Dutasteride (Avodart -) 0.5 mg PO DAILY [facility] Last Admin: 06/01/18 09:35 Dose: 0.5 mg Enoxaparin Sodium (Lovenox -) 40 mg SQ DAILY [facility] Last Admin: 06/01/18 09:33 Dose: 40 mg Fluvoxamine Maleate (Luvox -) 100 mg PO BID [facility] Last Admin: 06/01/18 09:37 Dose: 100 mg Ceftriaxone Sodium 1 gm/ (Dextrose) 50 mls @ 100 mls/hr IVPB DAILY [facility]; Protocol Last Admin: 06/01/18 09:31 Dose: 100 mls/hr Insulin Aspart (Novolog Vial Sliding Scale -) 1 vial SQ TIDAC [facility]; Protocol Last Admin: 06/01/18 12:02 Dose: 6 units Insulin Detemir (Levemir Vial) 80 units SQ DAILY@0700 [facility] Last Admin: 06/01/18 06:44 Dose: 80 units Metoprolol Tartrate (Lopressor -) 25 mg PO BID [facility] Last Admin: 06/01/18 09:34 Dose: 25 mg Oxcarbazepine (Trileptal -) 150 mg PO [facility] Last Admin: 05/31/18 21:06 Dose: 150 mg Oxcarbazepine (Trileptal -) 300 mg PO BID [facility] Last Admin: 06/01/18 09:38 Dose: 300 mg Polyethylene Glycol (Miralax (For Daily Use) -) 17 gm PO DAILY [facility] Last Admin: 06/01/18 09:38 Dose: 17 gm Rosuvastatin Calcium (Crestor -) 10 mg PO [facility] Last Admin: 05/31/18 21:05 Dose: 10 mg Sitagliptin Phosphate (Januvia -) 100 mg PO DAILY@0700 [facility] Last Admin: 06/01/18 06:41 Dose: 100 mg Tamsulosin HCl (Flomax -) 0.8 mg PO DAILY@0830 [facility] Last Admin: 06/01/18 09:34 Dose: 0.8 mg Thiamine HCl (Vitamin B1 -) 100 mg PO DAILY [facility] Last Admin: 06/01/18 09:35 Dose: 100 mg - Objective Vital Signs: Vital Signs Temperature 98.3 F 06/01/18 15:35 Pulse Rate 67 06/01/18 15:35 Respiratory Rate 20 06/01/18 10:00 Blood Pressure 138/69 06/01/18 15:35 O2 Sat by Pulse Oximetry (%) 98 06/01/18 09:00 Constitutional: Yes: No Distress, Calm Cardiovascular: Yes: Regular Rate and Rhythm Respiratory: Yes: Regular Gastrointestinal: Yes: Normal Bowel Sounds, Soft, Abdomen, Obese Genitourinary: Yes: Fournier Present Extremities: Yes: WNL Neurological: Yes: Alert Labs: CBC, BMP 05/31/18 06:30 05/31/18 06:30 INR, PTT INR 1.07 (0.83-1.09) 05/26/18 12:35 Microbiology 05/26/18 12:45 Blood - Peripheral Venous Blood Culture - Final NO GROWTH AFTER 5 DAYS INCUBATION 05/26/18 12:48 Blood - Peripheral Venous Blood Culture - Final NO GROWTH AFTER 5 DAYS INCUBATION 05/26/18 13:30 Urine - Urine Clean Catch Urine Culture - Final Escherichia Coli Problem List - Problems (1) GUILLE (acute kidney injury) Code(s): N17.9 - ACUTE KIDNEY FAILURE, UNSPECIFIED (2) Sepsis Code(s): A41.9 - SEPSIS, UNSPECIFIED ORGANISM Qualifiers: Sepsis type: sepsis due to unspecified organism Qualified Code(s): A41.9 - Sepsis, unspecified organism (3) Toxic metabolic encephalopathy Code(s): G92 - TOXIC ENCEPHALOPATHY (4) UTI (urinary tract infection) Code(s): N39.0 - URINARY TRACT INFECTION, SITE NOT SPECIFIED Qualifiers: Urinary tract infection type: site unspecified Hematuria presence: without hematuria Qualified Code(s): N39.0 - Urinary tract infection, site not specified Assessment/Plan Complicated UTI s/p sepsis Urinary retention / fournier in place GUILLE resolved -- suggest switch to cefpodoxime 200 mg po BID x 3 days Pt is for discharge today
== END 2018-06-01 17:45 | DRG 871 ==
LOC: JER 12:31 → JERBED 12:59 → J6S 17:49
PROVIDERS: ADMIT Internal Medicine; ATTEND Internal Medicine
DX: A41.9 Sepsis, unspecified organism (principal); G92 Toxic encephalopathy; N17.9 Acute kidney failure, unspecified; N39.0 Urinary tract infection, site not specified; Z68.41 Body mass index [BMI] 40.0-44.9, adult; I10 Essential (primary) hypertension; N40.0 Benign prostatic hyperplasia without lower urinary tract symptoms; E78.5 Hyperlipidemia, unspecified; Z79.4 Long term (current) use of insulin; I45.10 Unspecified right bundle-branch block; R46.81 Obsessive-compulsive behavior; E66.9 Obesity, unspecified; E11.43 Type 2 diabetes mellitus with diabetic autonomic (poly)neuropathy; K31.84 Gastroparesis; R33.9 Retention of urine, unspecified
CPT/HCPCS: 36415; 70450-TC; 71045-TC-FY; 74018-TC-FY; 76775-TC; 76856-TC; 80048; 80053; 80183; 81003; 81015; 82550; 82803; 82962; 83036; 83605; 84484; 85025; 85027; 85610; 85730; 87040; 87086; 87186; 87804; 93005; 93010; 97116-GP; 97161-GP; 99284-25

== ENCOUNTER 2019-10-25 19:36 | Emergency (ER) | payer OTHER ==
[2019-10-25 19:52] VITALS: TEMP 98.3; BMI 45.1
--- NOTE | 2019-10-25 19:52 | PDOC ---
Attending Attestation - Resident Resident Name: Miguel Grande - ED Attending Attestation I have performed the following: I have examined & evaluated the patient, The case was reviewed & discussed with the resident, I agree w/resident's findings & plan - HPI HPI: 10/25/19 19:59 [place]. Pt sent for a CT head to r/o injury. Pt has no complaints. - Physicial Exam PE: 10/25/19 21:52 Agree with resident exam - Medical Decision Making 10/25/19 21:18 Patient Name: STACEY SALINAS PRELIMINARY REPORT FROM [facility] EXAM: CT brain without contrast DATE: 2019-10-25 20:41:04 IMAGES: 267 HISTORY: FALL IMPRESSION: Intracranial hemorrhage: None. Mass effect: None. Brain parenchyma: Likely chronic ischemic changes. Cortical irregularity seen at nasal bone, suspect mild fracture. 10/25/19 21:18 Blood sugar is 185 10/25/19 21:[address] scan pending. 10/25/19 21:52 Patient Name: STACEY SALINAS PRELIMINARY REPORT FROM [facility] EXAM: CT cervical spine without contrast DATE: 2019-10-25 20:29:51 IMAGES: 268 HISTORY: FALL IMPRESSION: Acute subluxations: None. Acute fractures: None. Other findings: Diffuse degenerative changes. Discharge - Discharge Information Problems reviewed: Yes Clinical Impression/Diagnosis: Fractured nose Condition: Stable Disposition: HOME - Follow up/Referral Referrals: Aida Hurley MD [Staff Physician] - - Patient Discharge Instructions Patient Printed Discharge Instructions: Nose Fracture, DI for Laceration Repair Steri-Strips Additional Instructions: Follow up with your primary care doctor within the next 24-48 hours and return to the Emergency Department for worsening symptoms or any other concerns. - Post Discharge Activity
--- NOTE | 2019-10-25 19:54 | PDOC ---
History of Present Illness - General Chief Complaint: Injury Stated Complaint: FALL Time Seen by Provider: 10/25/19 19:52 - History of Present Illness Initial Comments: 10/25/19 19:56 79 y/o M hx of NIDDM, HTN, HLD, OCD, BPH, BIBA from [facility] no LOC able to remember sequence of events up to his fall was bibems. lacerations on nasal bridge and forehead. steri strips applied by EMS pt denies any chest pain, shortness of breath, headache, pain, abdominal pain, weakness[facility]. 10/25/19 21:51 Patient denies DAVIS, vision change, palpitations, cough, wheezing, orthopena, PND, leg swelling/pain, N/V, F,C, CP, SOB, urinary complaints, hematuria, BPR, abdominal pain, diarrhea, constipation, lightheadedness, weakness, sensory changes. PMHx: as noted above ROS: as noted SHx: Denies Etoh, IVDA, tobacco use Allergies: NKDA ROS: GENERAL/CONSTITUTIONAL: No fever or chills. No weakness. HEAD, EYES, EARS, NOSE AND THROAT: No change in vision. No ear pain or discharge. No sore throat. CARDIOVASCULAR: No chest pain or shortness of breath RESPIRATORY: No cough, wheezing, or hemoptysis. GASTROINTESTINAL: No nausea, vomiting, diarrhea or constipation. GENITOURINARY: No dysuria, frequency, or change in urination. MUSCULOSKELETAL: No joint or muscle swelling or pain. No neck or back pain. SKIN: No rash NEUROLOGIC: No headache, vertigo, loss of consciousness, or change in strength/sensation. ENDOCRINE: No increased thirst. No abnormal weight change HEMATOLOGIC/LYMPHATIC: No anemia, easy bleeding, or history of blood clots. ALLERGIC/IMMUNOLOGIC: No hives or skin allergy. PE: GENERAL: AO to person only HEAD: superficial lacerations on forehead and nasal bridge. approx 0.5 and 1. 5cm respectively. no foreign body. EYES: PERRLA, EOMI, sclera anicteric, conjunctiva clear ENT: Auricles normal inspection, hearing grossly normal, nares patent, oropharynx clear without exudates. Moist mucosa NECK: Normal ROM, supple, no lymphadenopathy, JVD, or masses LUNGS: No distress, speaks full sentences, clear to auscultation bilaterally HEART: Regular rate and rhythm, normal S1 and S2, no murmurs, rubs or gallops, peripheral pulses normal and equal bilaterally. ABDOMEN: Soft, nontender, normoactive bowel sounds. No guarding, no rebound. No masses EXTREMITIES : Normal inspection, Normal range of motion, no edema. No clubbing or cyanosis NEUROLOGICAL: Cranial nerves II through XII grossly intact. Normal speech, normal gait, no focal sensorimotor deficits SKIN: Warm, Dry, normal turgor, no rashes or lesions noted Past History - Medical History Allergies/Adverse Reactions: Allergies Allergy/AdvReac Type Severity Reaction Status Date / Time No Known Allergies Allergy Verified 10/25/19 19:50 Home Medications: Ambulatory Orders Acetaminophen [Tylenol] 650 mg PO ONCE 05/26/18 Duloxetine HCl [Cymbalta -] 60 mg PO DAILY 05/26/18 Dutasteride [Avodart] 0.5 mg PO DAILY 05/26/18 Fluvoxamine Maleate [Luvox -] 100 mg PO BID 05/26/18 Furosemide [Lasix -] 40 mg PO DAILY 05/26/18 Glucosamine Sulfate Dipot Chlr [Glucosamine] 500 mg PO BID 05/26/18 Insulin (LOG) Aspart [NovoLOG -] 0 units SQ TID 05/26/18 Insulin (Levemir) [Levemir Vial] 80 unit SQ DAILY 05/26/18 Meloxicam [Mobic] 15 mg PO HS 05/26/18 Metformin HCl [Glucophage] 1,000 mg PO BID 05/26/18 Oxcarbazepine [Trileptal -] 300 mg PO BID 05/26/18 Oxcarbazepine [Trileptal] 150 mg PO HS 05/26/18 Rosuvastatin [Crestor -] 10 mg PO DAILY 05/26/18 Sitagliptin Phosphate [Januvia -] 100 mg PO DAILY@0700 05/26/18 Spironolactone [Aldactone -] 25 mg PO BID 05/26/18 Thiamine HCl [Vitamin B1 -] 100 mg PO DAILY 05/26/18 Docusate Sodium [Colace -] 100 mg PO Q8H PRN capsule 06/01/18 Duloxetine HCl [Cymbalta -] 60 mg PO DAILY capsule. 06/01/18 Enoxaparin [Lovenox -] 40 mg SQ DAILY disp.syrin 06/01/18 Insulin (Levemir) [Levemir Vial] 80 units SQ DAILY@0700 units 06/01/18 Metoprolol Tartrate [Lopressor -] 25 mg PO BID tablet 06/01/18 Polyethylene Glycol 3350 [Miralax 119 gm Btl -] 17 gm PO DAILY bottle 06/01/18 Tamsulosin HCl [Flomax -] 0.8 mg PO DAILY@0830 cap.er.24h 06/01/18 Anemia: No Asthma: No Cancer: No Cardiac Disorders: No CVA: No COPD: No CHF: No Dementia: No Diabetes: Yes GI Disorders: No Disorders: No HTN: Yes Hypercholesterolemia: No Liver Disease: No Psychiatric Problems: Yes (bipolar, OCD) Seizures: No Thyroid Disease: No - Surgical History Abdominal Surgery: No Appendectomy: No Cardiac Surgery: No Cholecystectomy: No Lung Surgery: No Neurologic Surgery: No Orthopedic Surgery: No - Psycho-Social/Smoking History Smoking History: Never smoked Have you smoked in the past 12 months: No Information on smoking cessation initiated: No - Substance Abuse Hx (Audit-C & DAST Scrn) How often the patient has a drink containing alcohol: Never Score: In Men: 4 or > Positive; In Women: 3 or > Positive: 0 Screen Result (Pos requires Nsg. Audit-10AR): Negative In the last yr the pt used illegal drug/Rx for NonMed reason: No Score: Yes response is considered Positive: 0 Screen Result (Positive result requires Nsg. DAST-10): Negative *Physical Exam - Vital Signs Last Vital Signs Temp Pulse Resp BP Pulse Ox 98.3 F 70 20 124/66 100 10/25/19 19:50 10/25/19 19:50 10/25/19 19:50 10/25/19 19:50 10/25/19 19:50 Procedures - Laceration/Wound Repair Anterior Face Wound Length: to 2.5 cm Wound Explored: no foreign body present Wound's Depth, Shape: superficial Irrigated w/ Saline: Yes Betadine Prep: No Wound Debrided: minimal Wound Repaired With: Steri-strips Suture Size/Type: other Number of Sutures: 0 (steri strips used) Layer Closure: No Medical Decision Making - Medical Decision Making 10/25/19 21:56 per chart records pt not on anticoagulation EXAM: CT brain without contrast DATE: 2019-10-25 20:41:04 IMAGES: 267 HISTORY: FALL IMPRESSION: Intracranial hemorrhage: None. Mass effect: None. Brain parenchyma: Likely chronic ischemic changes. Cortical irregularity seen at nasal bone, suspect mild fracture. c-spine w/o contrast EXAM: CT cervical spine without contrast DATE: 2019-10-25 20:29:51 IMAGES: 268 HISTORY: FALL IMPRESSION: Acute subluxations: None. Acute fractures: None. Other findings: Diffuse degenerative changes. Discharge - Discharge Information Problems reviewed: Yes Clinical Impression/Diagnosis: Fractured nose Condition: Stable Disposition: HOME - Admission No - Follow up/Referral Referrals: Aida Hurley MD [Staff Physician] - - Patient Discharge Instructions Patient Printed Discharge Instructions: DI for Laceration Repair Steri-Strips, Nose Fracture Additional Instructions: Follow up with your primary care doctor within the next 24-48 hours and return to the Emergency Department for worsening symptoms or any other concerns. - Post Discharge Activity
[2019-10-25] MEDS ORDERED: LIDOCAINE 5% TOPICAL PATCH TP ONE (21:53)
[2019-10-25] MEDS ORDERED: LIDOCAINE PATCH REMOVAL MC SCH (22:00)
[2019-10-25] MEDS ORDERED: LIDOCAINE 5% TOPICAL PATCH ONE (22:02)
[2019-10-25 22:38] VITALS: BP 119/71; PULSE 64
== END 2019-10-25 22:47 | disposition home or self-care (01) ==
LOC: JER 19:36
DX: S02.2XXA Fracture of nasal bones, initial encounter for closed fracture (principal)
CPT/HCPCS: 70450-TC; 72125-TC; 82962; 99284-25

== ENCOUNTER 2020-12-11 14:34 | Inpatient (IN) | payer OTHER ==
[2020-12-11 15:49] LABS: BASO % 0.5 % (0-2.0); EOS % 0.8 % (0-4.5); HEMATOCRIT 27.9 % (35.4-49); HEMOGLOBIN 9.6 GM/dL (11.7-16.9); LYMPH % 13.3 % (8-40); MCH 30.5 pg (25.7-33.7); MCHC 34.4 g/dl (32.0-35.9); MEAN CELL VOLUME 88.9 fl (80-96); MEAN PLT VOLUME 6.5 fl (7.5-11.1); MONO % 9.8 % (3.8-10.2); NEUT % 75.6 % (42.8-82.8); PLATELET COUNT 262 10^3/uL (134-434); RBC 3.14 M/mm3 (4.00-5.60); RDW 13.1 % (11.9-15.9); WHITE BLOOD COUNT 8.6 K/mm3 (4.0-10.0)
[2020-12-11 16:08] LABS: CHLORIDE 102 mmol/L (98-107); SODIUM 134 mmol/L (136-145)
[2020-12-11 16:11] LABS: ALBUMIN 3.1 g/dl (3.4-5.0); CALCIUM 8.1 mg/dL (8.5-10.1); CO2 19 mmol/L (21-32); GLUCOSE,RANDOM 135 mg/dL (74-106); LIPASE 128 U/L (73-393)
[2020-12-11 16:13] LABS: SGOT/AST 10 U/L (15-37); SGPT/ALT 10 U/L (13-61)
[2020-12-11 16:15] LABS: BILIRUBIN,TOTAL 0.3 mg/dL (0.2-1); TOT PROT 6.9 g/dl (6.4-8.2)
[2020-12-11 16:16] LABS: ALK PHOS 132 U/L (45-117)
[2020-12-11 16:24] LABS: ANION GAP 13 MMOL/L (8-16); BLOOD UREA NITROGEN 104.2 mg/dL (7-18); CREATININE 8.4 mg/dL (0.55-1.3)
[2020-12-11] MEDS ORDERED: SODIUM POLYSTYRENE SULFONATE 15 GM/60 ML BOTTLE PO ONE (16:28)
[2020-12-11] MEDS ORDERED: CALCIUM GLUCONATE 10% - 1,000 MG/10 ML VIAL IVPUSH ONE (16:32)
[2020-12-11] MEDS ORDERED: DEXTROSE 50%-WATER - 25 GM/50 ML VIAL IVPUSH ONE (16:34)
[2020-12-11] MEDS ORDERED: INSULIN REGULAR HUMAN 100 UNITS/ML *VIAL SQ ONE (16:34)
[2020-12-11] MEDS ORDERED: SODIUM ZIRCONIUM CYCLOSILICATE (LOKELMA) 5 GM PACKET PO ONE (16:35)
[2020-12-11] MEDS ORDERED: SODIUM ZIRCONIUM CYCLOSILICATE (LOKELMA) 5 GM PACKET ONE (16:44)
[2020-12-11] MEDS ORDERED: CALCIUM GLUCONATE 10% - 1,000 MG/10 ML VIAL ONE (16:44)
[2020-12-11] MEDS ORDERED: DEXTROSE 50%-WATER 25 GM/50 ML DISP.SYRIN ONE (16:44)
[2020-12-11] MEDS ORDERED: LACTATED RINGERS SOLUTION 1,000 ML IV STA (16:45)
[2020-12-11] MEDS ORDERED: ONDANSETRON 4 MG/2 ML VIAL IVPUSH ONE (16:45)
[2020-12-11] MEDS ORDERED: ONDANSETRON 4 MG/2 ML VIAL ONE (16:46)
[2020-12-11] MEDS ORDERED: SODIUM CHLORIDE 0.9% 500 ML INFUS.BAG IV ONE (16:50)
[2020-12-11] MEDS ORDERED: FUROSEMIDE 40 MG/4 ML INJECTABLE VIAL IVPUSH ONE (16:50)
[2020-12-11] MEDS ORDERED: ALBUTEROL SO4 2.5/IPRATROPIUM 0.5 INH SOL 3 ML VIAL.NEB. NEB ONE (17:41)
[2020-12-11] MEDS ORDERED: FUROSEMIDE 40 MG/4 ML INJECTABLE VIAL ONE (17:42)
[2020-12-11] MEDS: ALBUTEROL SO4 2.5/IPRATROPIUM 0.5 INH SOL 3 ML VIAL.NEB. NEB SCH ×4 (17:43→20:15)
[2020-12-11 18:51] LABS: URINE APPEARANCE CLEAR; URINE BILIRUBIN NEGATIVE (NEGATIVE); URINE COLOR YELLOW; URINE GLUCOSE (UA) NEGATIVE (NEGATIVE); URINE KETONE NEGATIVE (NEGATIVE); URINE LEUK ESTERASE NEGATIVE (NEGATIVE); URINE NITRITE NEGATIVE (NEGATIVE); URINE PROTEIN NEGATIVE (NEGATIVE); URINE UROBILINOGEN 0.2 mg/dL (0.2-1.0)
[2020-12-11] MEDS ORDERED: SODIUM CHLORIDE 250 ML IV PRN (18:55)
[2020-12-11 19:15] LABS: CHLORIDE 101 mmol/L (98-107); SODIUM 133 mmol/L (136-145)
[2020-12-11 19:16] LABS: CALCIUM 8.1 mg/dL (8.5-10.1)
[2020-12-11 19:17] LABS: BLOOD UREA NITROGEN 100.9 mg/dL (7-18); CO2 19 mmol/L (21-32)
[2020-12-11 19:18] LABS: GLUCOSE,RANDOM 243 mg/dL (74-106)
[2020-12-11 19:26] LABS: ANION GAP 13 MMOL/L (8-16); CREATININE 8.3 mg/dL (0.55-1.3)
[2020-12-11 21:01] LABS: CHLORIDE 101 mmol/L (98-107); SODIUM 135 mmol/L (136-145)
[2020-12-11 21:02] LABS: CALCIUM 8.2 mg/dL (8.5-10.1)
[2020-12-11 21:03] LABS: BLOOD UREA NITROGEN 98.8 mg/dL (7-18); CO2 21 mmol/L (21-32); GLUCOSE,RANDOM 216 mg/dL (74-106)
[2020-12-11 21:07] LABS: ANION GAP 13 MMOL/L (8-16); CREATININE 8.4 mg/dL (0.55-1.3)
[2020-12-12] MEDS ORDERED: DOCUSATE SODIUM 100 MG CAPSULE (FP) PO PRN (04:17)
[2020-12-12 08:09] LABS: BASO % 0.2 % (0-2.0); EOS % 0.6 % (0-4.5); HEMATOCRIT 23.7 % (35.4-49); HEMOGLOBIN 8.3 GM/dL (11.7-16.9); MCH 30.7 pg (25.7-33.7); MEAN CELL VOLUME 87.8 fl (80-96); MONO % 11.8 % (3.8-10.2); NEUT % 73.4 % (42.8-82.8); PLATELET COUNT 219 10^3/uL (134-434); RDW 12.7 % (11.9-15.9)
[2020-12-12 08:38] LABS: CALCIUM 7.8 mg/dL (8.5-10.1)
[2020-12-12 08:39] LABS: ALBUMIN 2.7 g/dl (3.4-5.0); MAGNESIUM 1.9 mg/dL (1.8-2.4)
[2020-12-12 08:42] LABS: CREATININE 5.8 mg/dL (0.55-1.3); PHOSPHOROUS 5.4 mg/dL (2.5-4.9)
[2020-12-12 08:43] LABS: BILIRUBIN,TOTAL 0.5 mg/dL (0.2-1); TOT PROT 6.1 g/dl (6.4-8.2)
[2020-12-12] MEDS: TAMSULOSIN HCL 0.4 MG CAP PO SCH (09:01)
[2020-12-12] MEDS: METOPROLOL TARTRATE 25 MG TABLET (FP) PO SCH ×2 (09:01→21:30)
[2020-12-12] MEDS: THIAMINE HCL 100 MG TABLET (FP) PO SCH (09:01)
[2020-12-12] MEDS: DUTASTERIDE 0.5 MG CAP (FP) PO SCH (09:01)
[2020-12-12] MEDS: OXcarbazepine 300 MG/5 ML 250 ML BULK BOTTLE PO SCH ×2 (09:13→21:34)
[2020-12-12] MEDS ORDERED: DEXTROSE 5%-0.45% SALINE 1,000 ML IV SCH (13:00)
[2020-12-12] MEDS: ZINC SULFATE 220 MG CAPSULE (FP) PO SCH (15:12)
[2020-12-12] MEDS: FUROSEMIDE 20 MG TABLET (FP) PO SCH (15:13)
[2020-12-12] MEDS: MULTIVITAMINS THER W-MINERALS COMBO TABLET (FP) PO SCH (15:13)
[2020-12-12] MEDS: HEPARIN NA (PORCINE) 5,000 UNITS/ML 1ML VIAL SQ SCH ×2 (15:13→23:00)
[2020-12-12] MEDS: INSULIN SLIDING SCALE (NOVOLOG) 1 VIAL SQ SCH (17:49)
[2020-12-12] MEDS ORDERED: PT OWN MED DRAWER 7, Y5N ONE (21:33)
[2020-12-12] MEDS: ROSUVASTATIN CA 10 MG TABLET (FP) PO SCH (21:34)
[2020-12-13] MEDS: INSULIN SLIDING SCALE (NOVOLOG) 1 VIAL SQ SCH ×3 (06:19→17:26)
[2020-12-13 07:20] LABS: BASO % 0.3 % (0-2.0); EOS % 1.5 % (0-4.5); HEMATOCRIT 23.8 % (35.4-49); HEMOGLOBIN 8.3 GM/dL (11.7-16.9); LYMPH % 22.2 % (8-40); MCH 30.7 pg (25.7-33.7); MCHC 34.9 g/dl (32.0-35.9); MEAN CELL VOLUME 88.1 fl (80-96); MEAN PLT VOLUME 6.9 fl (7.5-11.1); MONO % 10.6 % (3.8-10.2); NEUT % 65.4 % (42.8-82.8); PLATELET COUNT 204 10^3/uL (134-434); RBC 2.71 M/mm3 (4.00-5.60); RDW 13.1 % (11.9-15.9); WHITE BLOOD COUNT 6.4 K/mm3 (4.0-10.0)
[2020-12-13] MEDS ORDERED: SODIUM CHLORIDE 250 ML IV PRN (07:31)
[2020-12-13 07:32] LABS: ALBUMIN 2.7 g/dl (3.4-5.0)
[2020-12-13 07:34] LABS: BLOOD UREA NITROGEN 60.8 mg/dL (7-18)
[2020-12-13 07:35] LABS: CREATININE 6.9 mg/dL (0.55-1.3)
[2020-12-13 07:36] LABS: BILIRUBIN,TOTAL 0.4 mg/dL (0.2-1); TOT PROT 6.2 g/dl (6.4-8.2)
[2020-12-13 08:29] LABS: PHOSPHOROUS 6.6 mg/dL (2.5-4.9)
[2020-12-13] MEDS: TAMSULOSIN HCL 0.4 MG CAP PO SCH (08:32)
[2020-12-13] MEDS ORDERED: IRON SUCROSE INJECTION 200 MG in SODIUM CHLORIDE 90 ML IVPB ONE (08:32)
[2020-12-13] MEDS ORDERED: PT OWN MED DRAWER 7, Y5N ONE ×3 (09:21→20:21)
[2020-12-13] MEDS: SODIUM POLYSTYRENE SULFONATE 15 GM/60 ML BOTTLE PO ONE ×2 (09:24→09:38)
[2020-12-13] MEDS: DUTASTERIDE 0.5 MG CAP (FP) PO SCH (09:25)
[2020-12-13] MEDS: ZINC SULFATE 220 MG CAPSULE (FP) PO SCH (09:26)
[2020-12-13] MEDS: FUROSEMIDE 20 MG TABLET (FP) PO SCH (09:26)
[2020-12-13] MEDS: MULTIVITAMINS THER W-MINERALS COMBO TABLET (FP) PO SCH (09:26)
[2020-12-13] MEDS: OXcarbazepine 300 MG/5 ML 250 ML BULK BOTTLE PO SCH (09:26)
[2020-12-13] MEDS: THIAMINE HCL 100 MG TABLET (FP) PO SCH (09:26)
[2020-12-13] MEDS: METOPROLOL TARTRATE 25 MG TABLET (FP) PO SCH ×2 (09:26→21:54)
[2020-12-13] MEDS: SODIUM ZIRCONIUM CYCLOSILICATE (LOKELMA) 5 GM PACKET PO SCH ×2 (09:27→09:41)
[2020-12-13] MEDS: HEPARIN NA (PORCINE) 5,000 UNITS/ML 1ML VIAL SQ SCH ×2 (09:27→21:54)
[2020-12-13] MEDS: SEVELAMER CARBONATE 800 MG TAB (FP) PO SCH ×2 (12:37→17:30)
[2020-12-13] MEDS: ROSUVASTATIN CA 10 MG TABLET (FP) PO SCH (21:55)
[2020-12-13] MEDS: OXcarbazepine 150 MG TABLET (UD) PO SCH (21:55)
[2020-12-14 08:34] LABS: BASO % 0.2 % (0-2.0); HEMOGLOBIN 8.8 GM/dL (11.7-16.9); LYMPH % 19.1 % (8-40); MCH 30.2 pg (25.7-33.7); MCHC 33.8 g/dl (32.0-35.9); MEAN CELL VOLUME 89.3 fl (80-96); MEAN PLT VOLUME 6.8 fl (7.5-11.1); MONO % 9.6 % (3.8-10.2); NEUT % 69.1 % (42.8-82.8); PLATELET COUNT 235 10^3/uL (134-434); RBC 2.92 M/mm3 (4.00-5.60); WHITE BLOOD COUNT 6.7 K/mm3 (4.0-10.0)
[2020-12-14] MEDS: INSULIN SLIDING SCALE (NOVOLOG) 1 VIAL SQ SCH ×3 (08:51→17:41)
[2020-12-14] MEDS: SEVELAMER CARBONATE 800 MG TAB (FP) PO SCH ×3 (08:52→17:49)
[2020-12-14] MEDS: TAMSULOSIN HCL 0.4 MG CAP PO SCH (08:52)
[2020-12-14 09:01] LABS: ALBUMIN 2.5 g/dl (3.4-5.0); BLOOD UREA NITROGEN 35.9 mg/dL (7-18)
[2020-12-14] MEDS: HEPARIN NA (PORCINE) 5,000 UNITS/ML 1ML VIAL SQ SCH ×2 (09:01→22:06)
[2020-12-14] MEDS: METOPROLOL TARTRATE 25 MG TABLET (FP) PO SCH ×2 (09:01→22:06)
[2020-12-14] MEDS: THIAMINE HCL 100 MG TABLET (FP) PO SCH (09:01)
[2020-12-14] MEDS: ZINC SULFATE 220 MG CAPSULE (FP) PO SCH (09:01)
[2020-12-14] MEDS: MULTIVITAMINS THER W-MINERALS COMBO TABLET (FP) PO SCH (09:01)
[2020-12-14 09:02] LABS: CALCIUM 8.1 mg/dL (8.5-10.1); MAGNESIUM 2.3 mg/dL (1.8-2.4)
[2020-12-14] MEDS: OXcarbazepine 150 MG TABLET (UD) PO SCH ×2 (09:03→22:06)
[2020-12-14] MEDS: DUTASTERIDE 0.5 MG CAP (FP) PO SCH (09:03)
[2020-12-14 09:04] LABS: CREATININE 5.2 mg/dL (0.55-1.3); PHOSPHOROUS 4.8 mg/dL (2.5-4.9)
[2020-12-14 09:05] LABS: BILIRUBIN,TOTAL 0.3 mg/dL (0.2-1); TOT PROT 6.2 g/dl (6.4-8.2)
[2020-12-14 09:07] LABS: N-TERMINAL BNP 4202.8 pg/ml (5-450)
[2020-12-14] MEDS ORDERED: amLODIPine BESYLATE 2.5 MG TABLET (FP) PO SCH ×2 (10:00)
[2020-12-14] MEDS: amLODIPine BESYLATE 10 MG TABLET (FP) PO SCH (11:48)
[2020-12-14] MEDS ORDERED: PT OWN MED DRAWER 7, Y5N ONE (21:38)
[2020-12-14] MEDS: ROSUVASTATIN CA 10 MG TABLET (FP) PO SCH (22:06)
[2020-12-15] MEDS: INSULIN SLIDING SCALE (NOVOLOG) 1 VIAL SQ SCH ×3 (06:49→17:22)
[2020-12-15] MEDS ORDERED: PT OWN MED DRAWER 7, Y5N ONE ×4 (08:04→21:31)
[2020-12-15 08:07] LABS: BASO % 0.4 % (0-2.0); EOS % 2.6 % (0-4.5); HEMATOCRIT 23.3 % (35.4-49); LYMPH % 25.2 % (8-40); MCH 30.2 pg (25.7-33.7); MCHC 34.5 g/dl (32.0-35.9); MEAN CELL VOLUME 87.7 fl (80-96); MEAN PLT VOLUME 6.6 fl (7.5-11.1); MONO % 9.8 % (3.8-10.2); PLATELET COUNT 215 10^3/uL (134-434); RBC 2.66 M/mm3 (4.00-5.60); RDW 12.9 % (11.9-15.9)
[2020-12-15 08:28] LABS: ALBUMIN 2.5 g/dl (3.4-5.0); BLOOD UREA NITROGEN 43.6 mg/dL (7-18)
[2020-12-15] MEDS: TAMSULOSIN HCL 0.4 MG CAP PO SCH (08:30)
[2020-12-15] MEDS: SEVELAMER CARBONATE 800 MG TAB (FP) PO SCH ×3 (08:30→17:23)
[2020-12-15 08:31] LABS: CREATININE 6.1 mg/dL (0.55-1.3); PHOSPHOROUS 4.7 mg/dL (2.5-4.9)
[2020-12-15 08:32] LABS: BILIRUBIN,TOTAL 0.3 mg/dL (0.2-1)
[2020-12-15] MEDS: DUTASTERIDE 0.5 MG CAP (FP) PO SCH (09:34)
[2020-12-15] MEDS: HEPARIN NA (PORCINE) 5,000 UNITS/ML 1ML VIAL SQ SCH ×2 (09:35→22:27)
[2020-12-15] MEDS: ZINC SULFATE 220 MG CAPSULE (FP) PO SCH (09:35)
[2020-12-15] MEDS: amLODIPine BESYLATE 10 MG TABLET (FP) PO SCH (09:35)
[2020-12-15] MEDS: MULTIVITAMINS THER W-MINERALS COMBO TABLET (FP) PO SCH (09:35)
[2020-12-15] MEDS: OXcarbazepine 150 MG TABLET (UD) PO SCH ×2 (09:35→22:28)
[2020-12-15] MEDS: THIAMINE HCL 100 MG TABLET (FP) PO SCH (09:35)
[2020-12-15] MEDS: ROSUVASTATIN CA 10 MG TABLET (FP) PO SCH (22:27)
[2020-12-15] MEDS: INSULIN (LEVEMIR) 100 UNITS/ML UNITS SQ SCH (22:29)
[2020-12-15 23:07] VITALS: BMI 39.5
[2020-12-16] MEDS: INSULIN SLIDING SCALE (NOVOLOG) 1 VIAL SQ SCH ×3 (06:23→17:09)
[2020-12-16 07:41] LABS: BASO % 0.5 % (0-2.0); EOS % 2.2 % (0-4.5); HEMATOCRIT 21.2 % (35.4-49); HEMOGLOBIN 7.3 GM/dL (11.7-16.9); LYMPH % 22.2 % (8-40); MCH 30.3 pg (25.7-33.7); MCHC 34.5 g/dl (32.0-35.9); MEAN CELL VOLUME 87.8 fl (80-96); MEAN PLT VOLUME 6.2 fl (7.5-11.1); MONO % 8.2 % (3.8-10.2); NEUT % 66.9 % (42.8-82.8); PLATELET COUNT 212 10^3/uL (134-434); RBC 2.41 M/mm3 (4.00-5.60); RDW 12.9 % (11.9-15.9); WHITE BLOOD COUNT 6.3 K/mm3 (4.0-10.0)
[2020-12-16] MEDS: SEVELAMER CARBONATE 800 MG TAB (FP) PO SCH ×3 (08:00→16:49)
[2020-12-16 08:14] LABS: ALBUMIN 2.6 g/dl (3.4-5.0); BLOOD UREA NITROGEN 52.2 mg/dL (7-18); CREATININE 7.1 mg/dL (0.55-1.3)
[2020-12-16 08:16] LABS: CALCIUM 8.1 mg/dL (8.5-10.1)
[2020-12-16 08:17] LABS: PHOSPHOROUS 5.2 mg/dL (2.5-4.9)
[2020-12-16] MEDS ORDERED: PT OWN MED DRAWER 7, Y5N ONE ×2 (09:24→21:39)
[2020-12-16] MEDS: TAMSULOSIN HCL 0.4 MG CAP PO SCH (09:52)
[2020-12-16] MEDS: amLODIPine BESYLATE 10 MG TABLET (FP) PO SCH (09:53)
[2020-12-16] MEDS: THIAMINE HCL 100 MG TABLET (FP) PO SCH (09:53)
[2020-12-16] MEDS: OXcarbazepine 150 MG TABLET (UD) PO SCH ×2 (09:53→22:17)
[2020-12-16] MEDS: MULTIVITAMINS THER W-MINERALS COMBO TABLET (FP) PO SCH (09:53)
[2020-12-16] MEDS: ZINC SULFATE 220 MG CAPSULE (FP) PO SCH (09:53)
[2020-12-16] MEDS: DUTASTERIDE 0.5 MG CAP (FP) PO SCH (09:54)
[2020-12-16] MEDS: INSULIN (LEVEMIR) 100 UNITS/ML UNITS SQ SCH ×2 (09:54→22:13)
[2020-12-16] MEDS: HEPARIN NA (PORCINE) 5,000 UNITS/ML 1ML VIAL SQ SCH ×2 (09:54→22:12)
[2020-12-16] MEDS ORDERED: SODIUM CHLORIDE 250 ML IV PRN (11:24)
[2020-12-16] MEDS ORDERED: EPOETIN ALFA-EPBX 20,000 UNIT/ML VIAL SQ ONE (11:53)
[2020-12-16] MEDS ORDERED: EPOETIN ALFA-EPBX 10,000 UNIT/ML VIAL IVPUSH ONE (12:30)
[2020-12-16] MEDS: ROSUVASTATIN CA 10 MG TABLET (FP) PO SCH (22:12)
[2020-12-17] MEDS: INSULIN SLIDING SCALE (NOVOLOG) 1 VIAL SQ SCH ×3 (06:49→17:29)
[2020-12-17] MEDS: INSULIN (LEVEMIR) 100 UNITS/ML UNITS SQ SCH ×2 (06:50→22:33)
[2020-12-17] MEDS ORDERED: PT OWN MED DRAWER 7, Y5N ONE ×2 (08:54→22:00)
[2020-12-17] MEDS: MULTIVITAMINS THER W-MINERALS COMBO TABLET (FP) PO SCH (09:14)
[2020-12-17] MEDS: ZINC SULFATE 220 MG CAPSULE (FP) PO SCH (09:14)
[2020-12-17] MEDS: SEVELAMER CARBONATE 800 MG TAB (FP) PO SCH ×2 (09:14→17:32)
[2020-12-17] MEDS: TAMSULOSIN HCL 0.4 MG CAP PO SCH (09:14)
[2020-12-17] MEDS: amLODIPine BESYLATE 10 MG TABLET (FP) PO SCH (09:15)
[2020-12-17] MEDS: OXcarbazepine 150 MG TABLET (UD) PO SCH ×2 (09:15→22:10)
[2020-12-17] MEDS: THIAMINE HCL 100 MG TABLET (FP) PO SCH (09:15)
[2020-12-17] MEDS: DUTASTERIDE 0.5 MG CAP (FP) PO SCH (09:16)
[2020-12-17 10:07] LABS: ANTIGLOMERULAR BASEMENT MEN.AB 2 units (0-20)
[2020-12-17] MEDS ORDERED: SODIUM CHLORIDE 250 ML IV PRN (11:52)
[2020-12-17] MEDS: HEPARIN NA (PORCINE) 5,000 UNITS/ML 1ML VIAL SQ SCH ×2 (12:39→22:11)
[2020-12-17] MEDS ORDERED: HEPARIN NA (PORCINE) 5,000 UNITS/ML 1ML VIAL ONE (12:40)
[2020-12-17] MEDS ORDERED: LIDOCAINE HCL 1%, 10 MG/ML (20ML VIAL) ONE (12:40)
[2020-12-17] MEDS ORDERED: LIDOCAINE HCL 1%, 10 MG/ML (20ML VIAL) INF ONE (13:15)
[2020-12-17] MEDS ORDERED: ceFAZolin SODIUM 1 GM VIAL IVPB ONE (13:17)
[2020-12-17] MEDS ORDERED: ONDANSETRON 4 MG/2 ML VIAL IVPUSH PRN (13:45)
[2020-12-17] MEDS ORDERED: EPOETIN ALFA-EPBX 20,000 UNIT/ML VIAL SQ ONE (13:53)
[2020-12-17] MEDS ORDERED: DOCUSATE SODIUM 100 MG CAPSULE (FP) PO PRN (13:53)
[2020-12-17] MEDS: ROSUVASTATIN CA 10 MG TABLET (FP) PO SCH (22:11)
[2020-12-18] MEDS: INSULIN (LEVEMIR) 100 UNITS/ML UNITS SQ SCH ×2 (06:41→22:01)
[2020-12-18] MEDS: INSULIN SLIDING SCALE (NOVOLOG) 1 VIAL SQ SCH ×3 (06:43→17:29)
[2020-12-18] MEDS ORDERED: SODIUM CHLORIDE 250 ML IV PRN (07:13)
[2020-12-18] MEDS ORDERED: EPOETIN ALFA-EPBX 20,000 UNIT/ML VIAL SQ ONE ×2 (08:00→11:52)
[2020-12-18] MEDS ORDERED: HEPARIN NA (PORCINE) 5,000 UNITS/ML 1ML VIAL IVPUSH ONE ×3 (08:00→11:52)
[2020-12-18] MEDS: SEVELAMER CARBONATE 800 MG TAB (FP) PO SCH ×5 (08:52→17:30)
[2020-12-18 09:30] LABS: BASO % 0.3 % (0-2.0); EOS % 1.9 % (0-4.5); HEMATOCRIT 22.5 % (35.4-49); HEMOGLOBIN 7.7 GM/dL (11.7-16.9); LYMPH % 20.4 % (8-40); MCH 30.6 pg (25.7-33.7); MCHC 34.4 g/dl (32.0-35.9); MEAN CELL VOLUME 89.1 fl (80-96); MEAN PLT VOLUME 6.5 fl (7.5-11.1); MONO % 9.8 % (3.8-10.2); NEUT % 67.6 % (42.8-82.8); PLATELET COUNT 226 10^3/uL (134-434); RBC 2.53 M/mm3 (4.00-5.60); RDW 12.7 % (11.9-15.9); WHITE BLOOD COUNT 7.8 K/mm3 (4.0-10.0)
[2020-12-18 09:49] LABS: BLOOD UREA NITROGEN 44.1 mg/dL (7-18); CALCIUM 8.3 mg/dL (8.5-10.1)
[2020-12-18 09:50] LABS: HEMATOCRIT 21.7 % (35.4-49); HEMOGLOBIN 7.6 GM/dL (11.7-16.9); MCH 30.6 pg (25.7-33.7); MEAN CELL VOLUME 87.5 fl (80-96); MEAN PLT VOLUME 6.1 fl (7.5-11.1); PLATELET COUNT 218 10^3/uL (134-434); RBC 2.48 M/mm3 (4.00-5.60); WHITE BLOOD COUNT 8.1 K/mm3 (4.0-10.0)
[2020-12-18 09:52] LABS: CREATININE 6.2 mg/dL (0.55-1.3)
[2020-12-18] MEDS ORDERED: MULTIVITAMINS THER W-MINERALS COMBO TABLET (FP) PO SCH (10:00)
[2020-12-18] MEDS ORDERED: hydrALAZINE HCL 10 MG TABLET PO SCH (10:00)
[2020-12-18] MEDS ORDERED: amLODIPine BESYLATE 10 MG TABLET (FP) PO SCH ×2 (10:00→22:00)
[2020-12-18] MEDS: TAMSULOSIN HCL 0.4 MG CAP PO SCH (11:05)
[2020-12-18] MEDS: HEPARIN NA (PORCINE) 5,000 UNITS/ML 1ML VIAL SQ SCH ×2 (11:06→21:51)
[2020-12-18] MEDS: THIAMINE HCL 100 MG TABLET (FP) PO SCH (11:06)
[2020-12-18] MEDS: ZINC SULFATE 220 MG CAPSULE (FP) PO SCH (11:06)
[2020-12-18] MEDS: DUTASTERIDE 0.5 MG CAP (FP) PO SCH (11:08)
[2020-12-18] MEDS: OXcarbazepine 150 MG TABLET (UD) PO SCH ×2 (11:09→21:50)
[2020-12-18] MEDS: hydrALAZINE HCL 10 MG TABLET PO SCH (21:50)
[2020-12-18] MEDS: ROSUVASTATIN CA 10 MG TABLET (FP) PO SCH (21:53)
[2020-12-19] MEDS: INSULIN SLIDING SCALE (NOVOLOG) 1 VIAL SQ SCH ×3 (06:07→17:13)
[2020-12-19] MEDS: INSULIN (LEVEMIR) 100 UNITS/ML UNITS SQ SCH ×2 (06:13→22:22)
[2020-12-19] MEDS: hydrALAZINE HCL 10 MG TABLET PO SCH ×2 (09:03→22:22)
[2020-12-19] MEDS: THIAMINE HCL 100 MG TABLET (FP) PO SCH (09:03)
[2020-12-19] MEDS: HEPARIN NA (PORCINE) 5,000 UNITS/ML 1ML VIAL SQ SCH ×2 (09:04→22:21)
[2020-12-19] MEDS: DUTASTERIDE 0.5 MG CAP (FP) PO SCH (09:04)
[2020-12-19] MEDS: ZINC SULFATE 220 MG CAPSULE (FP) PO SCH (09:04)
[2020-12-19] MEDS: TAMSULOSIN HCL 0.4 MG CAP PO SCH (09:04)
[2020-12-19] MEDS: SEVELAMER CARBONATE 800 MG TAB (FP) PO SCH ×3 (09:04→17:13)
[2020-12-19] MEDS: amLODIPine BESYLATE 10 MG TABLET (FP) PO SCH (10:02)
[2020-12-19] MEDS: VITAMIN B COMP W-C 1 EA TABLET (NEPHRO-VITE) PO SCH (10:02)
[2020-12-19] MEDS: OXcarbazepine 150 MG TABLET (UD) PO SCH ×2 (10:21→22:26)
[2020-12-19] MEDS: ROSUVASTATIN CA 10 MG TABLET (FP) PO SCH (22:21)
[2020-12-19] MEDS ORDERED: PT OWN MED DRAWER 7, Y5N ONE (22:26)
[2020-12-20] MEDS: INSULIN (LEVEMIR) 100 UNITS/ML UNITS SQ SCH ×3 (06:21→22:03)
[2020-12-20] MEDS: INSULIN SLIDING SCALE (NOVOLOG) 1 VIAL SQ SCH ×3 (06:21→17:20)
[2020-12-20 08:46] LABS: BASO % 0.6 % (0-2.0); EOS % 2.1 % (0-4.5); HEMOGLOBIN 7.2 GM/dL (11.7-16.9); MCH 30.7 pg (25.7-33.7); MCHC 34.3 g/dl (32.0-35.9); MEAN CELL VOLUME 89.3 fl (80-96); MEAN PLT VOLUME 6.3 fl (7.5-11.1); MONO % 13.9 % (3.8-10.2); NEUT % 61.4 % (42.8-82.8); PLATELET COUNT 232 10^3/uL (134-434); RBC 2.35 M/mm3 (4.00-5.60); RDW 13.1 % (11.9-15.9); WHITE BLOOD COUNT 6.8 K/mm3 (4.0-10.0)
[2020-12-20 09:04] LABS: BLOOD UREA NITROGEN 50.9 mg/dL (7-18); CALCIUM 8.4 mg/dL (8.5-10.1)
[2020-12-20 09:08] LABS: CREATININE 6.1 mg/dL (0.55-1.3)
[2020-12-20] MEDS ORDERED: PT OWN MED DRAWER 7, Y5N ONE ×2 (09:54→21:53)
[2020-12-20] MEDS: VITAMIN B COMP W-C 1 EA TABLET (NEPHRO-VITE) PO SCH (09:57)
[2020-12-20] MEDS: TAMSULOSIN HCL 0.4 MG CAP PO SCH (09:57)
[2020-12-20] MEDS: amLODIPine BESYLATE 10 MG TABLET (FP) PO SCH (09:57)
[2020-12-20] MEDS: hydrALAZINE HCL 10 MG TABLET PO SCH ×2 (09:57→22:02)
[2020-12-20] MEDS: ZINC SULFATE 220 MG CAPSULE (FP) PO SCH (09:57)
[2020-12-20] MEDS: THIAMINE HCL 100 MG TABLET (FP) PO SCH (09:57)
[2020-12-20] MEDS: SEVELAMER CARBONATE 800 MG TAB (FP) PO SCH ×3 (09:57→18:23)
[2020-12-20] MEDS: HEPARIN NA (PORCINE) 5,000 UNITS/ML 1ML VIAL SQ SCH ×2 (09:57→22:02)
[2020-12-20] MEDS: OXcarbazepine 150 MG TABLET (UD) PO SCH ×2 (09:58→22:02)
[2020-12-20] MEDS: DUTASTERIDE 0.5 MG CAP (FP) PO SCH (09:58)
[2020-12-20] MEDS ORDERED: EPOETIN ALFA 10,000 UNIT/1 ML VIAL SQ ONE (13:15)
[2020-12-20] MEDS ORDERED: IRON SUCROSE INJECTION 100 MG in SODIUM CHLORIDE 95 ML IVPB ONE (13:15)
[2020-12-20 15:09] LABS: ATYPICAL pANCA <1:20 titer (Neg:<1:20); C-ANCA <1:20 titer (Neg:<1:20)
[2020-12-20] MEDS: ROSUVASTATIN CA 10 MG TABLET (FP) PO SCH (22:01)
[2020-12-21] MEDS: INSULIN (LEVEMIR) 100 UNITS/ML UNITS SQ SCH (06:40)
[2020-12-21] MEDS: INSULIN SLIDING SCALE (NOVOLOG) 1 VIAL SQ SCH ×2 (06:40→13:36)
[2020-12-21] MEDS: SEVELAMER CARBONATE 800 MG TAB (FP) PO SCH ×2 (08:56→13:36)
[2020-12-21] MEDS: TAMSULOSIN HCL 0.4 MG CAP PO SCH (08:56)
[2020-12-21] MEDS: amLODIPine BESYLATE 10 MG TABLET (FP) PO SCH (09:00)
[2020-12-21] MEDS: hydrALAZINE HCL 10 MG TABLET PO SCH (09:01)
[2020-12-21] MEDS: VITAMIN B COMP W-C 1 EA TABLET (NEPHRO-VITE) PO SCH (09:01)
[2020-12-21] MEDS: HEPARIN NA (PORCINE) 5,000 UNITS/ML 1ML VIAL SQ SCH (09:01)
[2020-12-21] MEDS: THIAMINE HCL 100 MG TABLET (FP) PO SCH (09:01)
[2020-12-21] MEDS: ZINC SULFATE 220 MG CAPSULE (FP) PO SCH (09:01)
[2020-12-21] MEDS: OXcarbazepine 150 MG TABLET (UD) PO SCH (09:02)
[2020-12-21] MEDS: DUTASTERIDE 0.5 MG CAP (FP) PO SCH (09:02)
[2020-12-21] MEDS ORDERED: SODIUM CHLORIDE 250 ML IV PRN (09:37)
[2020-12-21] MEDS ORDERED: HEPARIN NA (PORCINE) 5,000 UNITS/ML 1ML VIAL IVPUSH ONE (09:45)
[2020-12-21] MEDS ORDERED: IRON SUCROSE INJECTION 100 MG in SODIUM CHLORIDE 95 ML IVPB ONE (10:15)
[2020-12-21] MEDS ORDERED: EPOETIN ALFA-EPBX 10,000 UNIT/ML VIAL SQ ONE (10:15)
[2020-12-21 10:34] LABS: HEMATOCRIT 19.6 % (35.4-49); MCH 30.7 pg (25.7-33.7); MCHC 34.1 g/dl (32.0-35.9); MEAN CELL VOLUME 89.9 fl (80-96); MEAN PLT VOLUME 6.7 fl (7.5-11.1); PLATELET COUNT 273 10^3/uL (134-434); RBC 2.18 M/mm3 (4.00-5.60); RDW 13.4 % (11.9-15.9); WHITE BLOOD COUNT 6.2 K/mm3 (4.0-10.0)
[2020-12-21 10:37] LABS: HEMOGLOBIN 6.7 GM/dL (11.7-16.9)
[2020-12-21 11:07] LABS: CALCIUM 8.1 mg/dL (8.5-10.1)
[2020-12-21 11:08] LABS: BLOOD UREA NITROGEN 62.3 mg/dL (7-18)
[2020-12-21 11:11] LABS: CREATININE 6.6 mg/dL (0.55-1.3)
[2020-12-21 15:20] VITALS: BP 129/50; PULSE 73; TEMP 98.5
== END 2020-12-21 18:55 | DRG 291 ==
LOC: JER 14:34 → JERBED 21:21 → J4W 12-12 01:05
PROVIDERS: ADMIT Internal Medicine; ATTEND Internal Medicine
PROC: 05HM33Z Insertion of Infusion Device into Right Internal Jugular Vein, Percutaneous Approach (ICD-10-PCS; principal; 2020-12-11)
PROC: B543ZZA Ultrasonography of Right Jugular Veins, Guidance (ICD-10-PCS; 2020-12-11)
PROC: 30233N1 Transfusion of Nonautologous Red Blood Cells into Peripheral Vein, Percutaneous Approach (ICD-10-PCS; 2020-12-21)
PROC: 5A1D70Z Performance of Urinary Filtration, Intermittent, Less than 6 Hours Per Day (ICD-10-PCS; 2020-12-21)
DX: I13.2 Hypertensive heart and chronic kidney disease with heart failure and with stage 5 chronic kidney disease, or end stage renal disease (principal); N18.6 End stage renal disease; I45.2 Bifascicular block; N17.9 Acute kidney failure, unspecified; F03.90 Unspecified dementia, unspecified severity, without behavioral disturbance, psychotic disturbance, mood disturbance, and anxiety; E11.22 Type 2 diabetes mellitus with diabetic chronic kidney disease; F31.9 Bipolar disorder, unspecified; N18.9 Chronic kidney disease, unspecified; E78.5 Hyperlipidemia, unspecified; F42.9 Obsessive-compulsive disorder, unspecified; E83.39 Other disorders of phosphorus metabolism; N40.0 Benign prostatic hyperplasia without lower urinary tract symptoms; R11.2 Nausea with vomiting, unspecified; E87.5 Hyperkalemia; E88.09 Other disorders of plasma-protein metabolism, not elsewhere classified; E66.9 Obesity, unspecified; Z68.39 Body mass index [BMI] 39.0-39.9, adult; E11.65 Type 2 diabetes mellitus with hyperglycemia; I50.9 Heart failure, unspecified; K59.00 Constipation, unspecified; D50.9 Iron deficiency anemia, unspecified
CPT/HCPCS: 36415; 36430; 71045-TC-FY; 76000-TC-FY; 76775-TC; 76856-TC; 80048; 80053; 80061; 81003; 82550; 82728; 82962; 83036; 83516; 83520; 83540; 83550; 83690; 83735; 83880; 84100; 84155; 84165; 84443; 84484; 85025; 85027; 85379; 86038; 86225; 86256; 86803; 86850; 86900; 86901; 86922; 87086; 87340; 93005; 93010; 93306-TC; 93970-TC; 94760; 97116-GP; 97162-GP; 99285-25; C9803; J0885; J1644; J1756; P9058; Q5106; U0003; U0005

== ENCOUNTER 2021-09-07 04:23 | Day surgery (SDC) | payer OTHER ==
[2021-09-02 15:23] VITALS: BMI 39.9
[2021-09-07] MEDS ORDERED: LIDOCAINE HCL 2% 100 MG/5 ML DISP.SYRIN ONE (09:16)
[2021-09-07] MEDS ORDERED: MIDAZOLAM HCL 2 MG/2 ML SINGLE DOSE VIAL ONE (09:17)
[2021-09-07] MEDS ORDERED: DEXMEDETOMIDINE HCL 200 MCG/2 ML IVPB ONE (09:56)
[2021-09-07] MEDS ORDERED: POVIDONE-IODINE OINTMENT 10% - 28.4 GM TUBE ONE (10:11)
[2021-09-07] MEDS ORDERED: ceFAZolin SODIUM 1 GM VIAL ONE (10:28)
[2021-09-07] MEDS ORDERED: ceFAZolin SODIUM 1 GM VIAL IVPB ONE (10:30)
[2021-09-07] MEDS ORDERED: HEPARIN NA (PORCINE) 5,000 UNITS/ML 1ML VIAL SQ ONE (10:51)
[2021-09-07] MEDS ORDERED: LIDOCAINE HCL 1%, 10 MG/ML (20ML VIAL) INF ONE ×4 (10:51)
[2021-09-07] MEDS ORDERED: PAPAVERINE HCL 30 MG/1 ML 10 ML VIAL NR ONE (10:53)
[2021-09-07] MEDS ORDERED: POVIDONE-IODINE OINTMENT 10% - 28.4 GM TUBE TP ONE ×2 (11:48→11:50)
[2021-09-07] MEDS ORDERED: ONDANSETRON 4 MG/2 ML VIAL IVPUSH PRN (12:01)
[2021-09-07] MEDS ORDERED: PROMETHAZINE HCL 25 MG/1 ML VIAL IVPUSH PRN (12:01)
[2021-09-07] MEDS ORDERED: oxyCODONE HCL 5 MG TABLET PO PRN ×2 (12:01)
[2021-09-07] MEDS ORDERED: LACTATED RINGERS SOLUTION 1,000 ML IV SCH (12:15)
[2021-09-07 13:27] VITALS: PULSE 59; TEMP 97.8
[2021-09-07 14:03] VITALS: BP 105/60
== END 2021-09-07 14:05 ==
LOC: JASU-SURG 04:23
PROVIDERS: ATTEND Surgery
PROC: 031C0ZF Bypass Left Radial Artery to Lower Arm Vein, Open Approach (ICD-10-PCS; principal; 2021-09-07 11:00)
DX: I12.0 Hypertensive chronic kidney disease with stage 5 chronic kidney disease or end stage renal disease (principal); E11.22 Type 2 diabetes mellitus with diabetic chronic kidney disease; N18.6 End stage renal disease; Z99.2 Dependence on renal dialysis
CPT/HCPCS: 82962; 94760; J1644

== ENCOUNTER 2021-12-22 13:00 | Observation (INO) | payer OTHER ==
[2021-12-22 14:38] LABS: BASO % 0.3 % (0-2.0); EOS % 2.5 % (0-4.5); HEMATOCRIT 28.8 % (35.4-49); HEMOGLOBIN 9.7 GM/dL (11.7-16.9); LYMPH % 31.5 % (8-40); MCH 30.6 pg (25.7-33.7); MCHC 33.8 g/dl (32.0-35.9); MEAN CELL VOLUME 90.6 fl (80-96); MEAN PLT VOLUME 7.4 fl (7.5-11.1); MONO % 7.6 % (3.8-10.2); NEUT % 58.1 % (42.8-82.8); PLATELET COUNT 177 10^3/uL (134-434); RBC 3.17 M/mm3 (4.00-5.60); RDW 12.4 % (11.9-15.9); WHITE BLOOD COUNT 5.9 K/mm3 (4.0-10.0)
[2021-12-22 14:47] LABS: INR 0.97 (0.83-1.09); PROTHROMBIN TIME (PATIENT) 11.1 SEC (9.7-13.0)
[2021-12-22 14:50] LABS: ACTIVATED PTT 29.4 SECONDS (25.2-36.5)
[2021-12-22 15:21] LABS: ALBUMIN 3.3 g/dl (3.4-5.0); BLOOD UREA NITROGEN 45.8 mg/dL (7-18); CALCIUM 8.8 mg/dL (8.5-10.1); MAGNESIUM 2.2 mg/dL (1.8-2.4)
[2021-12-22 15:23] LABS: PHOSPHOROUS 4.1 mg/dL (2.5-4.9)
[2021-12-22 15:25] LABS: CREATININE 3.5 mg/dL (0.55-1.3)
[2021-12-22 15:26] LABS: BILIRUBIN,TOTAL 0.4 mg/dL (0.2-1); TOT PROT 7.3 g/dl (6.4-8.2)
[2021-12-22 19:56] VITALS: BMI 41.8
[2021-12-22] MEDS ORDERED: PNEUMOC 20-VAL CONJ-DIP CRM/PF 0.5 ML SYRINGE IM ONE (20:06)
[2021-12-23 08:39] LABS: BASO % 0.4 % (0-2.0); EOS % 2.6 % (0-4.5); HEMATOCRIT 25.2 % (35.4-49); HEMOGLOBIN 8.5 GM/dL (11.7-16.9); LYMPH % 33.1 % (8-40); MCHC 33.5 g/dl (32.0-35.9); MEAN CELL VOLUME 89.7 fl (80-96); MEAN PLT VOLUME 7.6 fl (7.5-11.1); MONO % 7.4 % (3.8-10.2); NEUT % 56.5 % (42.8-82.8); PLATELET COUNT 172 10^3/uL (134-434); RBC 2.81 M/mm3 (4.00-5.60); RDW 12.3 % (11.9-15.9); WHITE BLOOD COUNT 6.2 K/mm3 (4.0-10.0)
[2021-12-23 08:57] LABS: ALBUMIN 2.8 g/dl (3.4-5.0); BLOOD UREA NITROGEN 56.1 mg/dL (7-18); CALCIUM 8.2 mg/dL (8.5-10.1)
[2021-12-23 08:59] LABS: CREATININE 3.7 mg/dL (0.55-1.3)
[2021-12-23 09:00] LABS: BILIRUBIN,TOTAL 0.3 mg/dL (0.2-1)
[2021-12-23] MEDS ORDERED: DOCUSATE SODIUM 100 MG CAPSULE (FP) PO PRN (10:17)
[2021-12-23] MEDS: INSULIN SLIDING SCALE (NOVOLOG) 1 VIAL SQ SCH ×3 (12:45→22:50)
[2021-12-23] MEDS: SEVELAMER CARBONATE 800 MG TAB (FP) PO SCH ×2 (12:45→17:44)
[2021-12-23 15:06] VITALS: RESP 18
[2021-12-23] MEDS ORDERED: SODIUM CHLORIDE 250 ML IV PRN (15:59)
[2021-12-23] MEDS ORDERED: PATIENT'S OWN MEDICATION (NON-FORMULARY) (Glucosamine Sulfate Dipot Chlr [Glucosamine] 1,0 PO SCH (22:00)
[2021-12-23] MEDS: hydrALAZINE HCL 10 MG TABLET PO SCH (22:48)
[2021-12-23] MEDS: OXcarbazepine 150 MG TABLET (UD) PO SCH (22:49)
[2021-12-23] MEDS: INSULIN (LEVEMIR) 100 UNITS/ML UNITS SQ SCH (22:50)
[2021-12-23] MEDS: HEPARIN NA (PORCINE) 5,000 UNITS/ML 1ML VIAL SQ SCH (22:50)
[2021-12-24] MEDS: OXcarbazepine 150 MG TABLET (UD) PO SCH ×4 (00:24→22:43)
[2021-12-24] MEDS: INSULIN (LEVEMIR) 100 UNITS/ML UNITS SQ SCH ×2 (06:20→22:42)
[2021-12-24] MEDS: INSULIN SLIDING SCALE (NOVOLOG) 1 VIAL SQ SCH ×4 (06:20→22:42)
[2021-12-24] MEDS ORDERED: EPOETIN ALFA-EPBX 10,000 UNIT/ML VIAL IVPUSH ONE (08:00)
[2021-12-24 08:49] LABS: HEMATOCRIT 25.4 % (35.4-49); HEMOGLOBIN 8.6 GM/dL (11.7-16.9); MCH 30.2 pg (25.7-33.7); MCHC 33.8 g/dl (32.0-35.9); MEAN CELL VOLUME 89.5 fl (80-96); MEAN PLT VOLUME 7.5 fl (7.5-11.1); PLATELET COUNT 197 10^3/uL (134-434); RBC 2.84 M/mm3 (4.00-5.60); RDW 12.2 % (11.9-15.9); WHITE BLOOD COUNT 6.3 K/mm3 (4.0-10.0)
[2021-12-24 09:12] LABS: BLOOD UREA NITROGEN 62.3 mg/dL (7-18); CALCIUM 8.4 mg/dL (8.5-10.1)
[2021-12-24] MEDS ORDERED: DULoxetine HCL 60 MG CAPSULE.DR PO SCH (10:00)
[2021-12-24] MEDS: amLODIPine BESYLATE 10 MG TABLET (FP) PO SCH (11:37)
[2021-12-24] MEDS: TAMSULOSIN HCL 0.4 MG CAP PO SCH (11:37)
[2021-12-24] MEDS: DUTASTERIDE 0.5 MG CAP (FP) PO SCH (11:37)
[2021-12-24] MEDS: hydrALAZINE HCL 10 MG TABLET PO SCH ×2 (11:37→22:40)
[2021-12-24] MEDS: VITAMIN B COMP W-C 1 EA TABLET (NEPHRO-VITE) PO SCH (11:37)
[2021-12-24] MEDS: FUROSEMIDE 40 MG TABLET (FP) PO SCH (11:37)
[2021-12-24] MEDS: THIAMINE HCL 100 MG TABLET (FP) PO SCH (11:37)
[2021-12-24] MEDS: SEVELAMER CARBONATE 800 MG TAB (FP) PO SCH ×3 (11:37→18:32)
[2021-12-24] MEDS: POLYETHYLENE GLYCOL (HEALTHYLAX) 3350 17 GM PACKET PO SCH (11:38)
[2021-12-24] MEDS: HEPARIN NA (PORCINE) 5,000 UNITS/ML 1ML VIAL SQ SCH ×2 (11:38→22:42)
[2021-12-24] MEDS: ROSUVASTATIN CA 10 MG TABLET PO SCH (11:38)
[2021-12-25] MEDS: INSULIN SLIDING SCALE (NOVOLOG) 1 VIAL SQ SCH ×4 (06:11→21:27)
[2021-12-25] MEDS: INSULIN (LEVEMIR) 100 UNITS/ML UNITS SQ SCH ×2 (06:11→21:26)
[2021-12-25] MEDS: FUROSEMIDE 40 MG TABLET (FP) PO SCH (11:43)
[2021-12-25] MEDS: VITAMIN B COMP W-C 1 EA TABLET (NEPHRO-VITE) PO SCH (11:43)
[2021-12-25] MEDS: POLYETHYLENE GLYCOL (HEALTHYLAX) 3350 17 GM PACKET PO SCH (11:43)
[2021-12-25] MEDS: SEVELAMER CARBONATE 800 MG TAB (FP) PO SCH ×3 (11:43→18:00)
[2021-12-25] MEDS: HEPARIN NA (PORCINE) 5,000 UNITS/ML 1ML VIAL SQ SCH ×2 (11:44→21:26)
[2021-12-25] MEDS: THIAMINE HCL 100 MG TABLET (FP) PO SCH (11:44)
[2021-12-25] MEDS: hydrALAZINE HCL 10 MG TABLET PO SCH ×2 (11:44→21:26)
[2021-12-25] MEDS: ROSUVASTATIN CA 10 MG TABLET PO SCH (11:44)
[2021-12-25] MEDS: amLODIPine BESYLATE 10 MG TABLET (FP) PO SCH (11:44)
[2021-12-25] MEDS: TAMSULOSIN HCL 0.4 MG CAP PO SCH (11:44)
[2021-12-25] MEDS: DUTASTERIDE 0.5 MG CAP (FP) PO SCH (11:45)
[2021-12-25] MEDS: OXcarbazepine 150 MG TABLET (UD) PO SCH ×3 (12:08→21:28)
[2021-12-25] MEDS: DULoxetine HCL 30 MG CAPSULE.DR PO SCH (12:11)
[2021-12-26] MEDS: INSULIN SLIDING SCALE (NOVOLOG) 1 VIAL SQ SCH ×4 (06:53→21:58)
[2021-12-26] MEDS: INSULIN (LEVEMIR) 100 UNITS/ML UNITS SQ SCH ×2 (06:53→21:57)
[2021-12-26] MEDS: TAMSULOSIN HCL 0.4 MG CAP PO SCH (09:59)
[2021-12-26] MEDS: hydrALAZINE HCL 10 MG TABLET PO SCH ×2 (09:59→21:57)
[2021-12-26] MEDS: THIAMINE HCL 100 MG TABLET (FP) PO SCH (09:59)
[2021-12-26] MEDS: SEVELAMER CARBONATE 800 MG TAB (FP) PO SCH ×3 (09:59→17:56)
[2021-12-26] MEDS: amLODIPine BESYLATE 10 MG TABLET (FP) PO SCH (09:59)
[2021-12-26] MEDS: DUTASTERIDE 0.5 MG CAP (FP) PO SCH (09:59)
[2021-12-26] MEDS: FUROSEMIDE 40 MG TABLET (FP) PO SCH (09:59)
[2021-12-26] MEDS: ROSUVASTATIN CA 10 MG TABLET PO SCH (09:59)
[2021-12-26] MEDS: POLYETHYLENE GLYCOL (HEALTHYLAX) 3350 17 GM PACKET PO SCH (09:59)
[2021-12-26] MEDS: HEPARIN NA (PORCINE) 5,000 UNITS/ML 1ML VIAL SQ SCH ×2 (10:00→21:57)
[2021-12-26] MEDS: VITAMIN B COMP W-C 1 EA TABLET (NEPHRO-VITE) PO SCH (10:00)
[2021-12-26] MEDS: DULoxetine HCL 30 MG CAPSULE.DR PO SCH (10:01)
[2021-12-26] MEDS: OXcarbazepine 150 MG TABLET (UD) PO SCH ×3 (10:01→21:58)
[2021-12-26] MEDS ORDERED: HEPARIN NA (PORCINE) 5,000 UNITS/ML 1ML VIAL IVPUSH ONE (13:01)
[2021-12-26] MEDS ORDERED: SODIUM CHLORIDE 250 ML IV PRN (13:01)
[2021-12-26] MEDS ORDERED: EPOETIN ALFA-EPBX 10,000 UNIT/ML VIAL SQ ONE (13:01)
[2021-12-26 14:08] LABS: HEMATOCRIT 24.5 % (35.4-49); HEMOGLOBIN 8.4 GM/dL (11.7-16.9); MCH 30.8 pg (25.7-33.7); MCHC 34.3 g/dl (32.0-35.9); MEAN CELL VOLUME 89.9 fl (80-96); PLATELET COUNT 226 10^3/uL (134-434); RBC 2.73 M/mm3 (4.00-5.60); RDW 12.2 % (11.9-15.9); WHITE BLOOD COUNT 6.2 K/mm3 (4.0-10.0)
[2021-12-26 14:26] LABS: CALCIUM 8.1 mg/dL (8.5-10.1)
[2021-12-26 14:27] LABS: ALBUMIN 2.8 g/dl (3.4-5.0); BLOOD UREA NITROGEN 45.6 mg/dL (7-18)
[2021-12-26 14:31] LABS: BILIRUBIN,TOTAL 0.3 mg/dL (0.2-1)
[2021-12-27] MEDS: INSULIN SLIDING SCALE (NOVOLOG) 1 VIAL SQ SCH ×3 (06:32→19:10)
[2021-12-27] MEDS: INSULIN (LEVEMIR) 100 UNITS/ML UNITS SQ SCH (06:32)
[2021-12-27] MEDS: SEVELAMER CARBONATE 800 MG TAB (FP) PO SCH ×3 (09:59→19:21)
[2021-12-27] MEDS: FUROSEMIDE 40 MG TABLET (FP) PO SCH (09:59)
[2021-12-27] MEDS: ROSUVASTATIN CA 10 MG TABLET PO SCH (09:59)
[2021-12-27] MEDS: amLODIPine BESYLATE 10 MG TABLET (FP) PO SCH (09:59)
[2021-12-27] MEDS: VITAMIN B COMP W-C 1 EA TABLET (NEPHRO-VITE) PO SCH (09:59)
[2021-12-27] MEDS: HEPARIN NA (PORCINE) 5,000 UNITS/ML 1ML VIAL SQ SCH (10:00)
[2021-12-27] MEDS: hydrALAZINE HCL 10 MG TABLET PO SCH (10:00)
[2021-12-27] MEDS: THIAMINE HCL 100 MG TABLET (FP) PO SCH (10:00)
[2021-12-27] MEDS: TAMSULOSIN HCL 0.4 MG CAP PO SCH (10:00)
[2021-12-27] MEDS: DUTASTERIDE 0.5 MG CAP (FP) PO SCH (10:00)
[2021-12-27] MEDS: POLYETHYLENE GLYCOL (HEALTHYLAX) 3350 17 GM PACKET PO SCH (10:01)
[2021-12-27] MEDS: DULoxetine HCL 30 MG CAPSULE.DR PO SCH (10:01)
[2021-12-27] MEDS: OXcarbazepine 150 MG TABLET (UD) PO SCH (10:05)
[2021-12-27 18:45] VITALS: BP 111/55; PULSE 77; TEMP 98.2
== END 2021-12-27 19:21 ==
LOC: JER 13:00 → JERBED 15:04 → J4W 20:28 → J5S 12-23 10:43
PROVIDERS: ADMIT Internal Medicine; ATTEND Internal Medicine
PROC: 3E033GC Introduction of Other Therapeutic Substance into Peripheral Vein, Percutaneous Approach (ICD-10-PCS; principal; 2021-12-22)
PROC: 3E023GC Introduction of Other Therapeutic Substance into Muscle, Percutaneous Approach (ICD-10-PCS; 2021-12-22)
DX: T82.41XA Breakdown (mechanical) of vascular dialysis catheter, initial encounter (principal); Y82.8 Other medical devices associated with adverse incidents; E11.22 Type 2 diabetes mellitus with diabetic chronic kidney disease; I12.0 Hypertensive chronic kidney disease with stage 5 chronic kidney disease or end stage renal disease; N18.6 End stage renal disease; Z99.2 Dependence on renal dialysis; E78.5 Hyperlipidemia, unspecified; N40.0 Benign prostatic hyperplasia without lower urinary tract symptoms; F42.9 Obsessive-compulsive disorder, unspecified; U07.1 COVID-19
CPT/HCPCS: 36415; 71045-TC-FY; 80048; 80053; 82962; 83735; 84100; 85025; 85027; 85610; 85730; 86803; 86850; 86900; 86901; 87340; 93005; 93010; 93990-TC; 96372; 96374; 96375; 99285-25; C9803-CS; G0378; J1644; Q5106; U0003; U0005

== ENCOUNTER 2022-03-04 13:14 | Inpatient (IN) | payer OTHER ==
[2022-03-04 14:12] VITALS: BMI 41.5
[2022-03-04 14:54] LABS: VENOUS BASE EXCESS -0.3 mmol/L (-2-2); VENOUS O2 SATURATION 82.6 % (70-80); VENOUS PCO2 43.5 mmHg (38-52); VENOUS PH 7.377 (7.310-7.410)
[2022-03-04 14:56] LABS: BASO % 0.8 % (0-2.0); EOS % 2.3 % (0-4.5); HEMATOCRIT 24.1 % (35.4-49); HEMOGLOBIN 8.1 GM/dL (11.7-16.9); LYMPH % 33.1 % (8-40); MCH 30.9 pg (25.7-33.7); MCHC 33.8 g/dl (32.0-35.9); MEAN CELL VOLUME 91.5 fl (80-96); MEAN PLT VOLUME 6.8 fl (7.5-11.1); MONO % 9.4 % (3.8-10.2); NEUT % 54.4 % (42.8-82.8); PLATELET COUNT 209 10^3/uL (134-434); RBC 2.64 M/mm3 (4.00-5.60); RDW 13.5 % (11.9-15.9); WHITE BLOOD COUNT 5.3 K/mm3 (4.0-10.0)
[2022-03-04 15:02] LABS: INR 1.09 (0.83-1.09); PROTHROMBIN TIME (PATIENT) 12.5 SEC (9.7-13.0)
[2022-03-04 15:05] LABS: ACTIVATED PTT 29.6 SECONDS (25.2-36.5)
[2022-03-04 15:24] LABS: CALCIUM 8.6 mg/dL (8.5-10.1)
[2022-03-04 15:25] LABS: ALBUMIN 3.2 g/dl (3.4-5.0); BLOOD UREA NITROGEN 84.3 mg/dL (7-18)
[2022-03-04 15:28] LABS: CREATININE 5.3 mg/dL (0.55-1.3)
[2022-03-04 15:29] LABS: TOT PROT 6.7 g/dl (6.4-8.2)
[2022-03-04 15:30] LABS: BILIRUBIN,TOTAL 0.3 mg/dL (0.2-1)
[2022-03-05] MEDS ORDERED: DOCUSATE SODIUM 100 MG CAPSULE (FP) PO PRN (03:42)
[2022-03-05] MEDS ORDERED: TAMSULOSIN HCL 0.4 MG CAP ONE (08:28)
[2022-03-05] MEDS: SEVELAMER CARBONATE 800 MG TAB (FP) PO SCH ×3 (08:32→16:32)
[2022-03-05] MEDS: TAMSULOSIN HCL 0.4 MG CAP PO SCH (08:32)
[2022-03-05] MEDS ORDERED: amLODIPine BESYLATE 5 MG TABLET (FP) ONE (09:26)
[2022-03-05] MEDS ORDERED: hydrALAZINE HCL 10 MG TABLET ONE (09:26)
[2022-03-05] MEDS ORDERED: THIAMINE HCL 100 MG TABLET (FP) ONE (09:26)
[2022-03-05] MEDS ORDERED: DULoxetine HCL 30 MG CAPSULE.DR PO ONE (09:26)
[2022-03-05] MEDS ORDERED: POLYETHYLENE GLYCOL (HEALTHYLAX) 3350 17 GM PACKET ONE (09:26)
[2022-03-05] MEDS ORDERED: HEPARIN NA (PORCINE) 5,000 UNITS/ML 1ML VIAL ONE (09:27)
[2022-03-05] MEDS ORDERED: FUROSEMIDE 40 MG/4 ML INJECTABLE VIAL ONE (09:27)
[2022-03-05] MEDS ORDERED: hydrALAZINE HCL 10 MG TABLET PO SCH (10:00)
[2022-03-05] MEDS ORDERED: hydrALAZINE HCL 10 MG TABLET PO ONE (10:00)
[2022-03-05] MEDS ORDERED: FUROSEMIDE 40 MG TABLET (FP) ONE (10:00)
[2022-03-05] MEDS: amLODIPine BESYLATE 5 MG TABLET (FP) PO SCH (10:16)
[2022-03-05] MEDS: OXcarbazepine 150 MG TABLET (UD) PO SCH ×2 (10:16→22:54)
[2022-03-05] MEDS: POLYETHYLENE GLYCOL (HEALTHYLAX) 3350 17 GM PACKET PO SCH (10:16)
[2022-03-05] MEDS: DULoxetine HCL 30 MG CAPSULE.DR PO SCH (10:16)
[2022-03-05] MEDS: HEPARIN NA (PORCINE) 5,000 UNITS/ML 1ML VIAL SQ SCH ×2 (10:16→22:27)
[2022-03-05] MEDS: VITAMIN B COMP W-C 1 EA TABLET (NEPHRO-VITE) PO SCH (10:16)
[2022-03-05] MEDS: FUROSEMIDE 40 MG TABLET (FP) PO SCH (10:16)
[2022-03-05] MEDS: THIAMINE HCL 100 MG TABLET (FP) PO SCH (10:16)
[2022-03-05 14:06] VITALS: RESP 18
[2022-03-05] MEDS: INSULIN SLIDING SCALE (NOVOLOG) 1 VIAL SQ SCH (18:44)
[2022-03-05] MEDS ORDERED: ROSUVASTATIN CA 10 MG TABLET PO SCH (22:00)
[2022-03-05] MEDS: hydrALAZINE HCL 10 MG TABLET PO SCH (22:27)
[2022-03-06] MEDS: INSULIN SLIDING SCALE (NOVOLOG) 1 VIAL SQ SCH ×3 (06:50→16:10)
[2022-03-06] MEDS: SEVELAMER CARBONATE 800 MG TAB (FP) PO SCH ×3 (08:02→16:46)
[2022-03-06] MEDS: TAMSULOSIN HCL 0.4 MG CAP PO SCH (08:02)
[2022-03-06] MEDS ORDERED: SODIUM CHLORIDE 250 ML IV PRN (09:52)
[2022-03-06 10:07] LABS: CALCIUM 8.2 mg/dL (8.5-10.1)
[2022-03-06 10:08] LABS: BLOOD UREA NITROGEN 82.2 mg/dL (7-18)
[2022-03-06 10:11] LABS: CREATININE 5.6 mg/dL (0.55-1.3)
[2022-03-06] MEDS: POLYETHYLENE GLYCOL (HEALTHYLAX) 3350 17 GM PACKET PO SCH (10:33)
[2022-03-06] MEDS: amLODIPine BESYLATE 5 MG TABLET (FP) PO SCH (10:33)
[2022-03-06] MEDS: hydrALAZINE HCL 10 MG TABLET PO SCH (10:33)
[2022-03-06] MEDS: HEPARIN NA (PORCINE) 5,000 UNITS/ML 1ML VIAL SQ SCH (10:33)
[2022-03-06] MEDS: FUROSEMIDE 40 MG TABLET (FP) PO SCH (10:33)
[2022-03-06] MEDS: OXcarbazepine 150 MG TABLET (UD) PO SCH (10:33)
[2022-03-06] MEDS: DULoxetine HCL 30 MG CAPSULE.DR PO SCH (10:33)
[2022-03-06] MEDS: VITAMIN B COMP W-C 1 EA TABLET (NEPHRO-VITE) PO SCH (10:33)
[2022-03-06] MEDS: THIAMINE HCL 100 MG TABLET (FP) PO SCH (10:34)
[2022-03-06] MEDS ORDERED: EPOETIN ALFA-EPBX 4,000 UNIT/ML VIAL IVPUSH ONE (11:00)
[2022-03-06 21:05] VITALS: BP 148/65; PULSE 79; TEMP 97.3
== END 2022-03-06 21:56 | disposition home or self-care (01) | DRG 682 ==
LOC: JER 13:14 → JERBED 03-05 02:10 → J6S 03-05 10:37
PROVIDERS: ADMIT Internal Medicine; ATTEND Internal Medicine
PROC: 5A1D70Z Performance of Urinary Filtration, Intermittent, Less than 6 Hours Per Day (ICD-10-PCS; principal; 2022-03-06)
DX: I12.0 Hypertensive chronic kidney disease with stage 5 chronic kidney disease or end stage renal disease (principal); N18.6 End stage renal disease; Z68.41 Body mass index [BMI] 40.0-44.9, adult; F03.90 Unspecified dementia, unspecified severity, without behavioral disturbance, psychotic disturbance, mood disturbance, and anxiety; E11.51 Type 2 diabetes mellitus with diabetic peripheral angiopathy without gangrene; F32.9 Major depressive disorder, single episode, unspecified; E11.22 Type 2 diabetes mellitus with diabetic chronic kidney disease; E66.9 Obesity, unspecified; E78.5 Hyperlipidemia, unspecified; N40.0 Benign prostatic hyperplasia without lower urinary tract symptoms; I87.2 Venous insufficiency (chronic) (peripheral); E87.5 Hyperkalemia; Z99.2 Dependence on renal dialysis
CPT/HCPCS: 0241U-QW; 36415; 70450-TC; 71045-TC-FY; 80048; 80053; 82553; 82803; 82962; 83605; 84484; 85025; 85610; 85730; 86803; 86850; 86900; 86901; 87040; 87340; 93005; 93010; 99285-25; J1644; Q5106

== ENCOUNTER 2024-10-30 10:23 | Inpatient (IN) | payer OTHER ==
[2024-10-30 12:05] LABS: ABSOLUTE IMMATURE GRANULOCYTES 0.06 x10^3/uL (0.0-0.031); BASOPHILS # 0.03 x10^3/uL (0.01-0.08); EOSINOPHIL % 0.3 % (0.8-7.0); EOSINOPHILS # 0.03 x10^3/uL (0.04-0.54); MCHC 31.9 g/dl (32.3-36.5); MEAN CELL VOLUME 96.4 fl (79.0-92.2); MEAN PLT VOLUME 8.7 fl (9.4-12.4); MONOCYTE # 1.04 x10^3/uL (0.30-0.82); MONOCYTE % 11.3 % (5.3-12.2); RDW 12.7 % (12.6-16.6)
[2024-10-30 12:06] LABS: BG HCT 29.0 % (35.4-49); VENOUS BASE EXCESS 1.0 mmol/L (-2-2); VENOUS O2 SATURATION 87.6 % (70-80); VENOUS PCO2 41.1 mmHg (38-52); VENOUS PH 7.413 (7.310-7.410)
[2024-10-30 12:14] LABS: INR 1.23 (0.83-1.09); PROTHROMBIN TIME (PATIENT) 13.5 SEC (9.7-13.0)
[2024-10-30 12:17] LABS: ACTIVATED PTT 27.9 SECONDS (25.2-36.5)
[2024-10-30 12:45] LABS: GLUCOSE,RANDOM 137.0 mg/dL (74-106)
[2024-10-30 12:46] LABS: TOT PROT 6.2 g/dl (6.4-8.2)
[2024-10-30 12:47] LABS: CO2 25.0 mmol/L (21-32)
[2024-10-30 12:48] LABS: ALK PHOS 129.0 U/L (40-150)
[2024-10-30 12:51] LABS: CREATININE 5.05 mg/dL (0.55-1.3); SGOT/AST 44.0 U/L (5-34); SGPT/ALT 46.0 U/L (0-55)
[2024-10-30 13:46] LABS: N-TERMINAL BNP 11864.4 pg/mL (0-299.9)
[2024-10-30] MEDS ORDERED: ACETAMINOPHEN 325 MG TABLET (FP) PO PRN (14:19)
[2024-10-30] MEDS ORDERED: PANTOPRAZOLE 40 MG TABLET PO ONE (15:37)
[2024-10-30] MEDS: PANTOPRAZOLE 40 MG TABLET PO SCH (15:38)
[2024-10-30] MEDS ORDERED: SODIUM CHLORIDE 250 ML IV PRN (16:00)
[2024-10-30] MEDS: EPOETIN ALFA-EPBX 10,000 UNIT/ML VIAL SQ ONE (17:51)
[2024-10-30 20:51] VITALS: BMI 38.3
[2024-10-30 21:34] LABS: LDL CHOLESTEROL (ONLY SJRH) 51.0 mg/dL (5-100)
[2024-10-30] MEDS ORDERED: HEPARIN NA (PORCINE) 5,000 UNITS/ML 1ML VIAL SQ SCH (22:00)
[2024-10-30] MEDS: HEPARIN NA (PORCINE) 5,000 UNITS/ML 1ML VIAL SQ SCH (22:16)
[2024-10-30] MEDS: OXcarbazepine 300 MG/5 ML UNIT DOSE CUPS PO SCH (22:16)
[2024-10-30] MEDS: DOCUSATE SODIUM 100 MG CAPSULE (FP) PO SCH (22:17)
[2024-10-31] MEDS: INSULIN GLARGINE (LANTUS) 100 UNITS/ML UNITS SQ SCH (06:49)
[2024-10-31] MEDS: INSULIN ASPART SLIDING SCALE (NOVOLOG) 1 VIAL SQ SCH (08:00)
[2024-10-31 09:21] VITALS: RESP 18
[2024-10-31] MEDS: SEVELAMER CARBONATE 800 MG TAB (FP) PO SCH (09:24)
[2024-10-31] MEDS ORDERED: SODIUM CHLORIDE 250 ML IV PRN ×2 (10:41→12:53)
[2024-10-31] MEDS: POLYETHYLENE GLYCOL (HEALTHYLAX) 3350 17 GM PACKET PO SCH (10:42)
[2024-10-31 10:50] LABS: HCV DIAGNOSTIC IN-HOUSE W/RFLX NON-REACTIVE (NONREACTIVE)
[2024-10-31 11:24] LABS: ABSOLUTE IMMATURE GRANULOCYTES 0.10 x10^3/uL (0.0-0.031); BASOPHILS # 0.04 x10^3/uL (0.01-0.08); EOSINOPHIL % 0.1 % (0.8-7.0); EOSINOPHILS # 0.01 x10^3/uL (0.04-0.54); MCHC 31.4 g/dl (32.3-36.5); MEAN CELL VOLUME 96.3 fl (79.0-92.2); MEAN PLT VOLUME 9.0 fl (9.4-12.4); MONOCYTE # 1.22 x10^3/uL (0.30-0.82); MONOCYTE % 11.9 % (5.3-12.2); RDW 13.0 % (12.6-16.6)
[2024-10-31 11:29] VITALS: TEMP 98.1
[2024-10-31 12:06] LABS: GLUCOSE,RANDOM 213.0 mg/dL (74-106)
[2024-10-31 12:08] LABS: CO2 27.0 mmol/L (21-32)
[2024-10-31 12:12] LABS: CREATININE 4.59 mg/dL (0.55-1.3)
[2024-10-31] MEDS: EPOETIN ALFA-EPBX 10,000 UNIT/ML VIAL SQ ONE (12:24)
[2024-10-31 14:07] LABS: HIV INTERPRETATION NEGATIVE (NEGATIVE)
[2024-10-31 14:09] VITALS: BP 153/98; PULSE 81
[2024-10-31] MEDS: DULoxetine HCL 60 MG CAPSULE.DR PO SCH (15:24)
[2024-10-31] MEDS: TAMSULOSIN HCL 0.4 MG CAP PO SCH (15:24)
[2024-10-31] MEDS: DUTASTERIDE 0.5 MG CAP (FP) PO SCH (15:24)
[2024-10-31] MEDS: ASPIRIN COATED 81 MG TABLET.EC PO SCH (15:25)
[2024-10-31] MEDS ORDERED: ROSUVASTATIN CA 10 MG TABLET PO SCH (22:00)
[2024-11-01] MEDS ORDERED: EPOETIN ALFA-EPBX 10,000 UNIT/ML VIAL SQ ONE (12:53)
== END 2024-10-31 15:13 | disposition short-term general hospital (02) | DRG 314 ==
LOC: JER 10:23 → JERBED 11:16 → J4W 20:12
PROVIDERS: ADMIT Internal Medicine; ATTEND Internal Medicine
DX: I31.39 Other pericardial effusion (noninflammatory) (principal); J96.01 Acute respiratory failure with hypoxia; N18.6 End stage renal disease; I13.2 Hypertensive heart and chronic kidney disease with heart failure and with stage 5 chronic kidney disease, or end stage renal disease; I50.32 Chronic diastolic (congestive) heart failure; I31.4 Cardiac tamponade; E78.5 Hyperlipidemia, unspecified; E11.22 Type 2 diabetes mellitus with diabetic chronic kidney disease; D64.9 Anemia, unspecified; N40.0 Benign prostatic hyperplasia without lower urinary tract symptoms
CPT/HCPCS: 36415; 71045-TC-FY; 71250-TC; 76604; 80048; 80053; 80061; 82803; 82962; 83036; 83880; 84443; 84484; 85025; 85610; 85730; 86803; 86850; 86900; 86901; 87340; 87389; 87637-QW; 93005; 93010; 93306-TC; 93308; 99291; Q5106